=== PATIENT | male | born 1975 | race Hispanic/Latino ===

== ENCOUNTER 2019-10-23 18:20 | Inpatient (IN) | payer OTHER, SELFPAY ==
[2019-10-23 19:02] LABS: #Basophils 0.1 thou/uL (0.0-0.2); #Eosinphils 0.3 thou/uL (0.0-0.7); #Lymphocytes 2.6 thou/uL (1.20-3.40); #Monocytes 0.5 thou/uL (0.11-0.59); #Neutrophils 5.5 thou/uL (1.40-6.50); %Eosinophils 3.7 % (0.0-10.0); %Lymphocytes 28.5 % (21.0-51.0); %Neutrophils 60.8 % (42.0-75.0); Hemoglobin 11.3 g/dL (14.0-18.0); Mean Corpuscular HGB CONC 33.4 g/dL (32.0-36.0); Mean Corpuscular Volume 92.8 fL (78.0-98.0); Mean Platelet Volume 7.5 fL (7.4-10.4); Platelet Count 327 thou/uL (130-400); RBC Distribution Width 11.5 % (11.5-14.5); Red Blood Cell (RBC) Count 3.65 mill/uL (4.70-6.10); White Blood Cell (WBC) Count 9.1 thou/uL (4.8-10.8)
[2019-10-23 19:03] LABS: Bilirubin Negative (Negative); Blood, Urine 2+ (Negative); Clarity Turbid (Clear); Glucose, Urine (Dipstick) 200 mg/dL (Negative); Leukocyte Negative Leu/uL (Negative); Nitrite Negative (Negative); Protein, Urine (Dipstick) 600 mg/dL (Neg-Trace); Squamous Epithelial 0-3 HPF (0-3); Urobilinogen Normal mg/dL (Less than 2)
[2019-10-23 19:14] LABS: Bacteria/HPF None Seen HPF (None Seen)
[2019-10-23 19:15] LABS: Sperm/HPF 3+ HPF (None Seen)
[2019-10-23 19:26] LABS: ALT (SGPT) 14 U/L (8-55); AST (SGOT) 33 U/L (5-34); Albumin 2.5 g/dL (3.5-5.0); Alkaline Phosphatase 107 U/L (40-110); Anion Gap 20 mmol/L (10-20); BUN (Urea Nitrogen) 63 mg/dL (8.9-20.6); Bilirubin, Total 0.2 mg/dL (0.2-1.2); Calc. Creatinine Clearance 0 mL/min (70-130); Carbon Dioxide 17 mmol/L (22-29); Estimated GFR-MDRD 3; Globulin 3.6 g/dL (2.4-3.5); Glucose 172 mg/dL (70-105); Lipase 47 U/L (8-78); Potassium 3.9 mmol/L (3.5-5.1); Protein, Total 6.1 g/dL (6.0-8.3); Sodium 138 mmol/L (136-145)
[2019-10-23 19:35] LABS: Calcium 4.8 mg/dL (7.8-10.44)
[2019-10-23 20:02] LABS: Chloride 105 mmol/L (98-107)
--- NOTE | 2019-10-23 20:17 | RAD ---
SINGLE VIEW OF THE CHEST: 10/23/19 COMPARISON: None. HISTORY: Hyperglycemia and dyspnea. FINDINGS: Single view of the chest shows a normal sized cardiomediastinal silhouette. There is no evidence of c onsolidation, mass, or pleural effusion. The bones are unremarkable. IMPRESSION: No evidence of acute cardiopulmonary disease. POS: EAA
--- NOTE | 2019-10-23 20:46 | CT ---
CT ABDOMEN AND PELVIS WITH CONTRAST: 10/23/19 COMPARISON: None. HISTORY: Shortness of breath and generalized abdominal pain. The patient is diabetic and has low 25 lb in the last month. TECHNIQUE: Multiple contiguous axial images were obtained in a CT of the abdomen and pelvis with contrast. Sagit mylene and coronal reformats were performed. FINDINGS: The kidneys are lobulated in appearance. The gallbladder is decompressed. The liver, adrenal glands, spleen, and pancreas are unremarkable. No free air, free fluid or stranding changes are seen in the a bdomen or pelvis. The large and small bowel are normal in caliber. The appendix is normal. No abdominal or pelvic lymph adenopathy are seen. The visualized inferior thorax is unremarkable. The abdominal wall soft tissues are unremarkable. Mil d degenerative changes are seen in the spine. IMPRESSION: No evidence of acute intra-abdominal/pelvic abnormality. POS: EAA
[2019-10-23] MEDS ORDERED: Morphine 4 MG/ML VIAL ONE (21:03)
--- NOTE | 2019-10-23 21:35 | PDOC.HHP ---
Hospitalist HPI - History of Present Illness Pedal edema History of Present Illness: Patient is a 43 year old male with PMH T1DM, advanced CKD who presents to ED for elevated blood sugar. Patient reports his sugar became out of control today despite normal diet and activity pattern, he takes 4u BID humulin R and 26u BID humulin N BID normally w/ SSI, most recent A1C around 6.5. He has had DKA once before. He has had issues with obtaining supplies and reports he is uninsured. He recently was discharged from [facility] 9 months ago, while incarcerated he was having regular nephrology follow up and had been diagnosed with CKD IV at that time, but has not had labs since he reports. He also complains of gradual slow onset of pedal edema over last year or so, swelling has become a daily occurance where it did not used to happen that much. He also developed shortness of breath in last few days which is new. he has developed poor appetite since CKD worsened, reports he in chronically depressed and is on depakote/seroquel. He has lost 25 pounds since leaving [facility] 9 months ago. He admits to vomiting daily and one episode of blood in vomit once previously. He also describes a pleuritic chest pain. In ED, sugars [address] a/p without acute findings, labs concerning for acute renal failure w/ Cr 15, CO2 17, BUN 63. Calcium 4.8. UA w/ pyuria, no bacteria, no leukocyte or nitrite. He also recieved IVF x 2-3 L in ED. Patient admitted for acute on chronic renal failure. Hospitalist ROS - Review of Systems Constitutional: denies: fever, chills, sweats, weakness, malaise, other Eyes: reports: vision change (blurry). denies: pain, conjunctivae inflammation , eyelid inflammation, redness, other ENT: denies: ear pain, ear discharge, nose pain, nose discharge, nose congestion , mouth pain, mouth swelling, throat pain, throat swelling, other Respiratory: reports: shortness of breath. denies: cough, dry, hemoptysis, SOB with excertion, pleuritic pain, sputum, wheezing, other Cardiovascular: reports: edema. denies: chest pain, palpitations, orthopnea, paroxysmal noc. dyspnea, light headedness, other Gastrointestinal: reports: nausea, vomiting, abdominal pain, diarrhea Genitourinary: denies: dysuria, frequency, incontinence, hematuria, retention, other Musculoskeletal: denies: neck pain, shoulder pain, arm pain, back pain, hand pain, leg pain, foot pain, other Skin: denies: rash, lesions, alcides, bruising, other Neurological: denies: weakness, numbness, incoordination, change in speech, confusion, seizures, other All other systems reviewed; all pertinent +/- noted in HPI/Subj Hospitalist History - Past Medical History Other Medical History: T1DM DKA anxiety depression ckd/close to esrd - Past Surgical History Past Surgical History: reports: no pertinent history - Family History Family History: reports: no pertinent history - Social History Smoking Status: Never smoker Alcohol: reports: None Drugs: reports: marijuana - Exam General Appearance: NAD, awake alert Eye: PERRL, anicteric sclera ENT: normocephalic atraumatic, no oropharyngeal lesions, moist mucosa Neck: supple, symmetric, no JVD, no thyromegaly, no lymphadenopathy, no carotid bruit Heart: RRR, no murmur, no gallops, no rubs, normal peripheral pulses Respiratory: CTAB, no wheezes, no rales, no ronchi, normal chest expansion, no tachypnea, normal percussion Gastrointestinal: soft, non-tender, non-distended, normal bowel sounds, no palpable masses, no hepatomegaly, no splenomegaly, no bruit Extremities: no cyanosis, no clubbing, no edema Skin: normal turgor, no lesions, no rashes Neurological: cranial nerve grossly intact, normal sensation to touch, no weakness, no focal deficits, no new deficit Musculoskeletal: normal tone, normal strength, no muscle wasting Psychiatric: normal affect, normal behavior, A&O x 3 Hospitalist Results - Labs Result Diagrams: 10/23/19 18:46 10/23/19 22:35 Lab results: WBC 9.1 thou/uL (4.8-10.8) 10/23/19 18:46 Hgb 11.3 g/dL (14.0-18.0) L 10/23/19 18:46 Hct 33.9 % (42.0-52.0) L 10/23/19 18:46 MCV 92.8 fL (78.0-98.0) 10/23/19 18:46 Plt Count 327 thou/uL (130-400) 10/23/19 18:46 Neutrophils % 60.8 % (42.0-75.0) 10/23/19 18:46 Sodium 138 mmol/L (136-145) 10/23/19 18:46 Potassium 3.9 mmol/L (3.5-5.1) 10/23/19 18:46 Chloride 105 mmol/L (98-107) 10/23/19 18:46 Carbon Dioxide 17 mmol/L (22-29) L 10/23/19 18:46 BUN 63 mg/dL (8.9-20.6) H 10/23/19 18:46 Creatinine 15.46 mg/dL (0.7-1.3) H 10/23/19 18:46 Glucose 172 mg/dL (70-105) H 10/23/19 18:46 Calcium 4.8 mg/dL (7.8-10.44) L* 10/23/19 18:46 Total Bilirubin 0.2 mg/dL (0.2-1.2) 10/23/19 18:46 AST 33 U/L (5-34) 10/23/19 18:46 ALT 14 U/L (8-55) 10/23/19 18:46 Alkaline Phosphatase 107 U/L (40-110) 10/23/19 18:46 Troponin I 0.016 ng/mL (< 0.028) 10/23/19 18:46 B-Natriuretic Peptide 190.2 pg/mL (0-100) H 10/23/19 18:46 Serum Total Protein 6.1 g/dL (6.0-8.3) 10/23/19 18:46 Albumin 2.5 g/dL (3.5-5.0) L 10/23/19 18:46 Lipase 47 U/L (8-78) 10/23/19 18:46 Urine Ketones Negative mg/dL (Negative) 10/23/19 17:24 Urine Blood 2+ (Negative) A 10/23/19 17:24 Urine Nitrite Negative (Negative) 10/23/19 17:24 Ur Leukocyte Esterase Negative Nae/uL (Negative) 10/23/19 17:24 Urine RBC 4-6 HPF (0-3) A 10/23/19 17:24 Urine WBC 11-20 HPF (0-3) A 10/23/19 17:24 Ur Squamous Epith Cells 0-3 HPF (0-3) 10/23/19 17:24 Urine Bacteria None Seen HPF (None Seen) 10/23/19 17:24 Additional comment: VITAL SIGNS SatOctober 23, 2019 19:34 MARIUSZ Canales, Florina BP: 172/94 MAP: 120 Pulse: 87 Resp: 20 O2 sat: 100 on (Room Air) Time: 10/23/2019 19:34. RADIOLOGY CT Abdomen Pelvis W Con Observe DT: SatOctober 23, 2019 19:[address] ABDOMEN AND PELVIS WITH CONTRAST: 10/23/19 COMPARISON: None. HISTORY: Shortness of breath and generalized abdominal pain. The patient is diabetic and has low 25 lb in the last month. TECHNIQUE: Multiple contiguous axial images were obtained in a CT of the abdomen and pelvis with contrast. Sagit mylene and coronal reformats were performed. FINDINGS: The kidneys are lobulated in appearance. The gallbladder is decompressed. The liver, adrenal glands, spleen, and pancreas are unremarkable. No free air, free fluid or stranding changes are seen in the a bdomen or pelvis. The large and small bowel are normal in caliber. The appendix is normal. No abdominal or pelvic lymph adenopathy are seen. The visualized inferior thorax is unremarkable. The abdominal wall soft tissues are unremarkable. Mil d degenerative changes are seen in the spine. IMPRESSION: No evidence of acute intra-abdominal/pelvic abnormality. POS: EAA . RADIOLOGY XR Chest 1 View Portable Observe DT: SatOctober 23, 2019 19:00 CXRP SINGLE VIEW OF THE CHEST: 10/23/19 COMPARISON: None. HISTORY: Hyperglycemia and dyspnea. FINDINGS: Single view of the chest shows a normal sized cardiomediastinal silhouette. There is no evidence of c onsolidation, mass, or pleural effusion. The bones are unremarkable. IMPRESSION: No evidence of acute cardiopulmonary disease. - EKG Interpretation EKG: NSR, 88 bpm no peaked t waves no acute ST changes Hospitalist H&P A/P - Plan Plan: Patient is a 43 year old male with PMH T1DM, advanced CKD who presents to ED for elevated blood sugar, found to be in renal faliure # acute renal failure on CKD IV - no indication for emergent HD - GFR < 15, suspect will need to initiate HD this admission, poor outpatient follow up since discharge from [facility] 9 months ago - NPO - hydrated in ED, acute worsening of renal failure may be secondary to dehydration from elevated blood sugar - consult nephrology - consult case management for insurance assistance, may get medicaid if esrd, wants to follow up but having difficulties with managing care as outpatient # prolonged QT - QTc 527, monitor on telemetry, check BMP/Mg again and replete if needed # T1DM w/ hyperglycemia - on humulin n 26 units BID + humulin R 4 units BID + SSI and reports good outpatient control - convert to lantus 20u BID w/ moderate SSI and titrate # pyuria - not definite UTI, will order urine culture and empiric ceftriaxone # mood disorder - continue seroquel, depakote # hypocalcemia - rechecked and confirmed, give 2 amp calcium gluconate and recheck BMP now and again at 1pm, nephrology consult placed DVT ppx GI ppx
[2019-10-23] MEDS ORDERED: Sodium Chloride 0.9% 1,000 ML IV SCH ×2 (21:45→23:30)
[2019-10-23 23:21] LABS: Anion Gap 20 mmol/L (10-20); BUN (Urea Nitrogen) 62 mg/dL (8.9-20.6); Calc. Creatinine Clearance 0 mL/min (70-130); Carbon Dioxide 15 mmol/L (22-29); Chloride 108 mmol/L (98-107); Estimated GFR-MDRD 4; Glucose 169 mg/dL (70-105); Potassium 4.3 mmol/L (3.5-5.1); Sodium 139 mmol/L (136-145)
[2019-10-23 23:25] LABS: Calcium 4.3 mg/dL (7.8-10.44)
[2019-10-24 00:07] VITALS: BMI 33.5
[2019-10-24] MEDS ORDERED: Promethazine HCl 12.5 MG in Sodium Chloride 0.9% 50 ML IVPB PRN (01:50)
[2019-10-24] MEDS ORDERED: Labetalol HCl 100 MG/20 ML VIAL SLOW IVP PRN (01:50)
[2019-10-24] MEDS ORDERED: Guaifenesin DM 100-10/5 ML UDCUP PO PRN (01:50)
[2019-10-24] MEDS ORDERED: Morphine 2 MG/ML SYRINGE SLOW IVP PRN (01:50)
[2019-10-24] MEDS ORDERED: Acetaminophen 325 MG TAB PO PRN (01:50)
[2019-10-24] MEDS ORDERED: Dextrose 5% in Water 1,000 ML IV PRN (02:25)
[2019-10-24] MEDS ORDERED: HumaLOG 300 UNITS/3 ML VIAL SC PRN (02:25)
[2019-10-24] MEDS ORDERED: Dextrose 50% Abboject 50 ML SYRINGE SLOW IVP PRN (02:25)
[2019-10-24 02:56] LABS: #Basophils 0.1 thou/uL (0.0-0.2); #Eosinphils 0.4 thou/uL (0.0-0.7); #Lymphocytes 2.5 thou/uL (1.20-3.40); #Monocytes 0.6 thou/uL (0.11-0.59); #Neutrophils 6.2 thou/uL (1.40-6.50); %Basophils 0.8 % (0.0-1.0); %Eosinophils 3.6 % (0.0-10.0); %Lymphocytes 25.9 % (21.0-51.0); %Monocytes 6.3 % (0.0-10.0); %Neutrophils 63.4 % (42.0-75.0); Hemoglobin 9.2 g/dL (14.0-18.0); Mean Corpuscular HGB CONC 33.7 g/dL (32.0-36.0); Mean Corpuscular Hemoglobin 31.5 pg (27.0-31.0); Mean Corpuscular Volume 93.4 fL (78.0-98.0); Mean Platelet Volume 7.2 fL (7.4-10.4); Platelet Count 248 thou/uL (130-400); RBC Distribution Width 11.5 % (11.5-14.5); Red Blood Cell (RBC) Count 2.91 mill/uL (4.70-6.10); White Blood Cell (WBC) Count 9.8 thou/uL (4.8-10.8)
[2019-10-24] MEDS ORDERED: Calcium Gluconate 9.2 MEQ in Sodium Chloride 0.9% 100 ML IVPB SCH ×2 (03:00→07:45)
[2019-10-24] MEDS ORDERED: cefTRIAXone\\ROCEPHIN 1 GM in Sodium Chloride 0.9% 100 ML IVPB SCH (03:00)
[2019-10-24 03:17] LABS: Anion Gap 18 mmol/L (10-20); BUN (Urea Nitrogen) 64 mg/dL (8.9-20.6); Calc. Creatinine Clearance 9 mL/min (70-130); Carbon Dioxide 17 mmol/L (22-29); Chloride 110 mmol/L (98-107); Estimated GFR-MDRD 4; Glucose 167 mg/dL (70-105); Magnesium 1.6 mg/dL (1.6-2.6); Sodium 141 mmol/L (136-145)
[2019-10-24 03:24] LABS: Calcium 4.4 mg/dL (7.8-10.44)
[2019-10-24 03:41] LABS: Phosphorus 11.7 mg/dL (2.3-4.7)
[2019-10-24] MEDS: Ondansetron PF 4 MG/2 ML Vial IVP PRN (05:44)
[2019-10-24 06:52] LABS: Anion Gap 18 mmol/L (10-20); BUN (Urea Nitrogen) 63 mg/dL (8.9-20.6); Calc. Creatinine Clearance 9 mL/min (70-130); Carbon Dioxide 15 mmol/L (22-29); Chloride 110 mmol/L (98-107); Estimated GFR-MDRD 4; Glucose 150 mg/dL (70-105); Potassium 4.2 mmol/L (3.5-5.1); Sodium 139 mmol/L (136-145)
[2019-10-24 06:57] LABS: Calcium 4.8 mg/dL (7.8-10.44)
[2019-10-24] MEDS: Insulin Glargine 20 UNITS in Pre-Filled Syringe 1 EACH SC SCH ×2 (08:23→20:26)
[2019-10-24] MEDS: Polyethylene Glycol 3350 17 GM Packet PO SCH (08:23)
[2019-10-24] MEDS: Heparin 5,000 UNITS/ML VIAL SC SCH ×3 (08:30→20:28)
[2019-10-24] MEDS ORDERED: Calcium Carbonate 600 MG TAB PO SCH (09:00)
[2019-10-24] MEDS ORDERED: Famotidine 20 MG TAB PO SCH (09:00)
[2019-10-24] MEDS ORDERED: Tuberculin PPD 0.1 ML VIAL I-DERMAL SCH (11:30)
[2019-10-24] MEDS ORDERED: EPOETIN ALFA-EPBX (ESRD) 10,000 UNIT/ML VIAL SC SCH (11:45)
[2019-10-24] MEDS: Sevelamer Carbonate 800 MG TAB PO SCH ×2 (12:21→17:24)
[2019-10-24 12:49] LABS: Hep B Core Total Ab Non-Reactive (NonReactive); Hep B Core Total Index 0.03 S/CO (0-0.79)
[2019-10-24 12:50] LABS: HBSAB Concentration 1.83 mIU/mL; Hep B Surf AB Non-Reactive (NonReactive); Hep B Surf Ag Non-Reactive S/CO (NonReactive)
[2019-10-24 12:51] LABS: Hep C IgG Ab Non-Reactive (NonReactive); Hep C Index 0.09 S/CO (0-0.79)
[2019-10-24 13:46] LABS: Anion Gap 20 mmol/L (10-20); BUN (Urea Nitrogen) 74 mg/dL (8.9-20.6); Calc. Creatinine Clearance 9 mL/min (70-130); Carbon Dioxide 17 mmol/L (22-29); Chloride 109 mmol/L (98-107); Estimated GFR-MDRD 4; Glucose 123 mg/dL (70-105); Magnesium 1.6 mg/dL (1.6-2.6); Potassium 4.3 mmol/L (3.5-5.1); Sodium 142 mmol/L (136-145)
[2019-10-24 13:53] LABS: Calcium 5.3 mg/dL (7.8-10.44); Phosphorus 11.4 mg/dL (2.3-4.7)
[2019-10-24] MEDS: Calcium Carbonate 600 MG TAB PO SCH ×2 (15:33→20:28)
[2019-10-24] MEDS: HYDROcodone/Acetaminophen 5/325 mg Tablet PO PRN (15:33)
--- NOTE | 2019-10-24 20:22 | PDOC.HOSPP ---
- Subjective Encounter Date: 10/24/19 Encounter Time: 10:00 Subjective: no overnight events. This morning laying comfortably in bed and has no complaints. Nephrology consulted, pending trialysis placement and dialysis - Objective Vital Signs & Weight: Vital Signs (12 hours) Temp Pulse Resp BP Pulse Ox 10/24/19 11:33 98.5 F 81 18 178/83 H 95 10/24/19 08:23 98 F 82 18 161/80 H 95 Weight Admit Weight 213 lb 13.568 oz Weight 213 lb 13.574 oz I&O: 10/23/19 10/24/19 10/25/19 06:59 06:59 06:59 Intake Total 222 720 Output Total 1000 1999 Balance -198 -6849 Result Diagrams: 10/24/19 02:44 10/24/19 13:18 Additional Labs: Accuchecks 10/24/19 10/24/19 10/24/19 16:51 10:55 05:45 POC Glucose 193 H 127 H 177 H Hospitalist ROS - Review of Systems Constitutional: denies: fever, chills, sweats, weakness, malaise, other Respiratory: denies: cough, dry, shortness of breath, hemoptysis, SOB with excertion, pleuritic pain, sputum, wheezing, other Cardiovascular: denies: chest pain, palpitations, orthopnea, paroxysmal noc. dyspnea, edema, light headedness, other Gastrointestinal: denies: nausea, vomiting, abdominal pain, diarrhea, constipation, melena, hematochezia, other Genitourinary: denies: dysuria, frequency, incontinence, hematuria, retention, other - Medication Medications: Active Medications Generic Name Dose Route Start Last Admin Trade Name Freq PRN Reason Stop Dose Admin Hydrocodone Bitart/Acetaminophen 1 tab 10/24/19 01:50 10/24/19 15:33 Beason 5/325 PO 1 tab Q4H PRN Administration Moderate Pain (4-6) Calcium Carbonate 600 mg 10/24/19 15:00 10/24/19 15:33 Caltrate PO 600 mg TID APURVA Administration Epoetin Venkatesh-epbx 10,000 unit 10/24/19 11:45 10/24/19 12:22 Retacrit SC 10,000 unit Q7D APURVA Administration Heparin Sodium (Porcine) 5,000 units 10/24/19 09:00 10/24/19 15:35 Heparin SC Not Given TID [facility] Insulin Glargine 20 units/ 0.2 mls @ 0 mls/hr 10/24/19 09:00 10/24/19 08:23 Miscellaneous Medication SC Not Given BID [facility] Ondansetron HCl 4 mg 10/24/19 01:50 10/24/19 05:44 Zofran IVP 4 mg Q6H PRN Administration Nausea/Vomiting use 1st Polyethylene Glycol 17 gm 10/24/19 09:00 10/24/19 08:23 Miralax PO Not Given DAILY [facility] Sevelamer Carbonate 800 mg 10/24/19 12:00 10/24/19 17:24 Renvela PO Not Given TID[facility] Sodium Chloride 10 ml 10/24/19 09:00 10/24/19 14:35 Flush - Normal Saline IVF Not Given Q12HR APURVA Sodium Chloride 10 ml 10/23/19 23:31 10/24/19 05:44 Flush - Normal Saline IVF 10 ml PRN PRN Administration Saline Flush - Exam General Appearance: NAD, awake alert Heart: RRR, no murmur, no gallops, no rubs, normal peripheral pulses Respiratory: CTAB, no wheezes, no rales, no ronchi, normal chest expansion, no tachypnea, normal percussion Gastrointestinal: soft, non-tender, non-distended, normal bowel sounds, no palpable masses, no hepatomegaly, no splenomegaly, no bruit Extremities: no cyanosis, no clubbing, no edema Psychiatric: normal affect, normal behavior, A&O x 3 Hosp A/P - Plan #CKD-MBD -supplemented Ca; started calcium carbonate -NPO, pending catheter placement and dialysis initiation -Educated patient in preparation for lifelong dialysis
[2019-10-24] MEDS: Divalproex Sodium DR 500 MG TAB PO SCH (20:28)
--- NOTE | 2019-10-24 20:28 | CON ---
DATE OF CONSULTATION: 10/24/2019 CONSULTING PHYSICIAN: Chadwick Kasper MD REASON FOR CONSULT: Worsening of renal labs. REASON FOR ADMISSION: Leg swelling. HISTORY OF PRESENT ILLNESS: This is a 43-year-old male with history of type 1 diabetes, CKD, hypertension, who came to the hospital with above complaints and was found to have worsening labs. The patient was recently discharged from [facility] and was following with Nephrology and the patient was found to have a GFR of 17, and was told that he might need dialysis in the near future. He did not have any followup for few months, almost 9 months. He has been having few symptoms of losing weight and worsening leg swelling and start up to the hospital and he was found to have hypocalcemia and severely advanced renal dysfunction and Nephrology is consulted. No nausea or vomiting. No chest pain or palpitation reported. PAST MEDICAL HISTORY: Positive for type 1 diabetes, DKA, anxiety, depression, CKD. PAST SURGICAL HISTORY: None. HOME MEDICATIONS: Reviewed. ALLERGIES: NO KNOWN DRUG ALLERGIES. SOCIAL HISTORY: No smoking, alcohol, or illicit drug use. FAMILY HISTORY: No history of kidney disease. REVIEW OF SYSTEMS: The following complete review of systems was negative, unless otherwise mentioned in the HPI or below: Constitutional: Weight loss or gain, ability to conduct usual activities. Skin: Rash, itching. Eyes: Double vision, pain. ENT/Mouth: Nose bleeding, neck stiffness, pain, tenderness. Cardiovascular: Palpitations, dyspnea on exertion, orthopnea. Respiratory: Shortness of breath, wheezing, cough, hemoptysis, fever or night sweats. Gastrointestinal: Poor appetite, abdominal pain, heartburn, nausea, vomiting, constipation, or diarrhea. Genitourinary: Urgency, frequency, dysuria, nocturia. Musculoskeletal: Pain, swelling. Neurologic/Psychiatric: Anxiety, depression. Allergy/Immunologic: Skin rash, bleeding tendency. PHYSICAL EXAMINATION: GENERAL: This is a well-built male, in no apparent distress. VITAL SIGNS: HEENT: Atraumatic, normocephalic. Oral mucosa is moist. NECK: Supple. CV: S1 and S2. Rate and rhythm normal. RESPIRATORY: Clear. GI: Abdomen is soft. MUSCULOSKELETAL: No tenderness. No edema. DERMATOLOGIC: No skin rash. NEUROLOGIC: Alert and awake. PSYCHIATRIC: Mood and affect normal. LABORATORY DATA: Hemoglobin is 9.2, potassium 4.2, BUN is 63, creatinine is 14.8, calcium is 4.8, phosphorus 11.7. ASSESSMENT AND PLAN: 1. End-stage renal disease. Plan is to start on dialysis and Surgery consulted. We will start him on dialysis once access is placed. 2. Acidosis. We will start him on dialysis. 3. Severe hypocalcemia. Continue calcium supplements. We will also have dialysis with calcium bath. 4. Hyperphosphatemia. We will add Renvela. 5. Anemia. We will start Epogen. Iron studies are adequate. 6. Edema. 7. History of hypertension . 8. Plan is to start on dialysis with the femoral catheter and consult Surgery on Saturday for possible tunneled dialysis catheter placement. Thank you for the consult. We will follow. Job ID: [id number]
--- NOTE | 2019-10-24 22:06 | OP ---
DATE OF PROCEDURE: 10/24/2019 CONSULTING PHYSICIAN: Mukul Suárez MD REASON FOR CONSULTATION: End-stage renal disease. PREOPERATIVE DIAGNOSIS: End-stage renal disease. POSTOPERATIVE DIAGNOSIS: End-stage renal disease. PROCEDURE PERFORMED: Placement of right femoral Trialysis hemodialysis catheter. ANESTHESIA: 1% lidocaine. INDICATIONS FOR PROCEDURE: The patient is a 43-year-old male. He presented to the hospital yesterday for evaluation with concerns regarding hyperglycemia. He knew that he did not feel well and was concerned it was his blood sugar level. His blood sugars, however, were only about 170. What was very elevated was his creatinine, which was 15. He was admitted by the Hospitalist Service and Nephrology consultation was obtained. He is also very hypocalcemic and hyperphosphatemic. Dialysis catheter placement was requested for urgent hemodialysis. DESCRIPTION OF PROCEDURE: Informed consent was obtained. The patient was placed supine in his bed on the telemetry floor. Right groin was trimmed of hair, prepped with ChloraPrep and draped in sterile fashion. Local anesthetic was infiltrated with 1% lidocaine. A large gauge needle was passed on the initial pass into the right femoral vein. A guidewire was passed through the needle. The needle was removed, skin was incised, tract was dilated, and a triple-lumen Trialysis catheter was passed over the wire uneventfully. Each of the three lumens aspirated blood freely and was flushed with normal saline. The catheter was secured to the skin exit site with 3-0 nylon suture. A sterile CHG dressing was applied. There were no complications. The patient tolerated the procedure well. He is cleared for usage of the catheter and I have requested all blood draws to be performed through this catheter as well. Job ID: [id number]
[2019-10-25 06:54] LABS: #Basophils 0.1 thou/uL (0.0-0.2); #Eosinphils 0.4 thou/uL (0.0-0.7); #Lymphocytes 2.2 thou/uL (1.20-3.40); #Monocytes 0.7 thou/uL (0.11-0.59); #Neutrophils 5.2 thou/uL (1.40-6.50); %Basophils 0.9 % (0.0-1.0); %Eosinophils 4.5 % (0.0-10.0); %Lymphocytes 25.6 % (21.0-51.0); %Monocytes 7.9 % (0.0-10.0); %Neutrophils 61.2 % (42.0-75.0); Hemoglobin 9.6 g/dL (14.0-18.0); Mean Corpuscular HGB CONC 32.8 g/dL (32.0-36.0); Mean Corpuscular Hemoglobin 30.6 pg (27.0-31.0); Mean Corpuscular Volume 93.4 fL (78.0-98.0); Mean Platelet Volume 7.4 fL (7.4-10.4); Platelet Count 278 thou/uL (130-400); RBC Distribution Width 11.4 % (11.5-14.5); Red Blood Cell (RBC) Count 3.12 mill/uL (4.70-6.10); White Blood Cell (WBC) Count 8.5 thou/uL (4.8-10.8)
[2019-10-25 07:23] LABS: Anion Gap 15 mmol/L (10-20); BUN (Urea Nitrogen) 48 mg/dL (8.9-20.6); Calc. Creatinine Clearance 10 mL/min (70-130); Calcium 5.9 mg/dL (7.8-10.44); Carbon Dioxide 20 mmol/L (22-29); Chloride 108 mmol/L (98-107); Estimated GFR-MDRD 5; Glucose 72 mg/dL (70-105); Magnesium 1.7 mg/dL (1.6-2.6); Phosphorus 8.4 mg/dL (2.3-4.7); Potassium 3.4 mmol/L (3.5-5.1); Sodium 140 mmol/L (136-145)
[2019-10-25] MEDS ORDERED: Potassium Chloride 20 MEQ TAB PO SCH (07:39)
--- NOTE | 2019-10-25 07:42 | ULT ---
BILATERAL RENAL ULTRASOUND: Date: 10/24/2019 COMPARISON: None. HISTORY: Acute kidney injury. Evaluate for obstruction. TECHNIQUE: Multiplanar Nuno scale and color Doppler images were obtained in a renal ultrasound. FINDINGS: The right kidney is slightly hyperechoic. The left kidney demonstrates normal cortical echogenicity. No hydronephrosis or calculi seen in either kidney. The kidneys measures 12.2 and 12.1 cm in length o n the right and left, respectively. Limited visualization of the urinary bladder is unremarkable. Neither ureteral jet was able to be vis ualized. IMPRESSION: Slight increased echogenicity of the right kidney may be secondary to chronic medical renal disease. POS: EAA
[2019-10-25] MEDS ORDERED: Calcium Gluconate 4.6 MEQ in Sodium Chloride 0.9% 100 ML IVPB SCH (07:45)
--- NOTE | 2019-10-25 07:48 | ULT ---
BILATERAL UPPER EXTREMITY VENOUS ULTRASOUND/MAPPING: Date: 10/24/2019 HISTORY: End-stage renal disease. Evaluate for fistula placement. TECHNIQUE: Multiplanar Grayscale and color Doppler images were obtained in bilateral upper extremity venous ultrasound. Spectral analysis of the Doppler waveforms were performed. FINDINGS: The right brachial, radial, and ulnar arteries measure 6.0 mm, 3.1 mm, and 1.5 mm in size, respective ly. The left brachial, radial, and ulnar arteries measure 3.7 mm, 2.5 mm, and 2.7 mm in size, respectivel y. RIGHT CEPHALIC VEIN: Shoulder 3.7 mm Upper arm 3.8 mm Mid upper arm 4.5 mm Just proximal to elbow 6.3 mm Just distal to elbow 1.9 mm Mid forearm 1.9 mm At wrist 1.7 mm RIGHT BASILIC VEIN: Shoulder 5.5 mm Upper arm 3.1 mm Mid upper arm 3.2 mm Just proximal to elbow 4.0 mm Just distal to elbow 3.3 mm Mid forearm 1.6 mm At wrist 1.6 mm LEFT CEPHALIC VEIN: Shoulder 3.9 mm Upper arm 1.9 mm Mid upper arm 2.0 mm Just proximal to elbow Clot Just distal to elbow Clot Mid forearm Clot At wrist Clot LEFT BASILIC VEIN: Shoulder 3.7 mm Upper arm 3.8 mm Mid upper arm 4.2 mm Just proximal to elbow 4.8 mm Just distal to elbow 3.7 mm Mid forearm 2.8 mm At wrist 3.6 mm The jugular veins and subclavian veins are patent without evidence of thrombus. IMPRESSION: Vein mapping for dialysis access as above. POS: AMALIA
[2019-10-25] MEDS: Calcium Carbonate 600 MG TAB PO SCH ×3 (08:34→20:30)
[2019-10-25] MEDS: Heparin 5,000 UNITS/ML VIAL SC SCH ×3 (08:34→20:31)
[2019-10-25] MEDS: Sevelamer Carbonate 800 MG TAB PO SCH ×3 (08:34→15:56)
[2019-10-25] MEDS: cloNIDine 0.1 MG TAB PO PRN ×2 (08:35→15:56)
[2019-10-25] MEDS: Polyethylene Glycol 3350 17 GM Packet PO SCH (08:41)
[2019-10-25] MEDS ORDERED: Heparin 10,000 UNITS/ 10 ML VIAL ONE (09:29)
[2019-10-25] MEDS: Famotidine 20 MG TAB PO SCH (11:21)
[2019-10-25] MEDS: Insulin Glargine 20 UNITS in Pre-Filled Syringe 1 EACH SC SCH ×2 (11:25→20:30)
--- NOTE | 2019-10-25 12:39 | PDOC.HOSPP ---
- Subjective Encounter Date: 10/25/19 Encounter Time: 09:00 Subjective: no overnight events. This morning feels well and endorses improvement in cramps he intermittently had in the past couple of weeks. - Objective Vital Signs & Weight: Vital Signs (12 hours) Temp Pulse Resp BP Pulse Ox 10/25/19 07:42 98.0 F 91 17 181/96 H 95 10/25/19 03:58 98.9 F 68 18 173/83 H 95 Weight Admit Weight 213 lb 13.568 oz Weight 200 lb 2.876 oz I&O: 10/24/19 10/25/19 10/26/19 06:59 06:59 06:59 Intake Total 222 960 Output Total 1000 2250 Balance -068 -9720 Result Diagrams: 10/25/19 06:48 10/25/19 06:48 Additional Labs: Accuchecks 10/25/19 10/25/19 10/24/19 11:26 05:52 20:27 POC Glucose 119 H 89 237 H 10/24/19 16:51 POC Glucose 193 H Hospitalist ROS - Review of Systems Constitutional: denies: fever, chills, sweats, weakness, malaise, other Respiratory: denies: cough, dry, shortness of breath, hemoptysis, SOB with excertion, pleuritic pain, sputum, wheezing, other Cardiovascular: denies: chest pain, palpitations, orthopnea, paroxysmal noc. dyspnea, edema, light headedness, other Gastrointestinal: denies: nausea, vomiting, abdominal pain, diarrhea, constipation, melena, hematochezia, other - Medication Medications: Active Medications Generic Name Dose Route Start Last Admin Trade Name Freq PRN Reason Stop Dose Admin Acetaminophen 650 mg 10/24/19 01:50 10/24/19 20:36 Tylenol PO 650 mg Q4H PRN Administration Headache/Fever/Mild Pain (1-3) Hydrocodone Bitart/Acetaminophen 1 tab 10/24/19 01:50 10/24/19 15:33 Tiro 5/325 PO 1 tab Q4H PRN Administration Moderate Pain (4-6) Calcium Carbonate 600 mg 10/24/19 15:00 10/25/19 08:34 Caltrate PO Not Given TID APURVA Clonidine 0.1 mg 10/24/19 01:50 10/25/19 08:35 Catapres PO 0.1 mg BID PRN Administration SBP > 160 use second Divalproex Sodium 500 mg 10/24/19 21:00 10/24/19 20:28 Depakote PO 500 mg HS APURVA Administration Epoetin Venkatesh-epbx 10,000 unit 10/24/19 11:45 10/24/19 12:22 Retacrit SC 10,000 unit Q7D APURVA Administration Famotidine 20 mg 10/25/19 09:00 10/25/19 11:21 Pepcid PO Not Given [facility] Heparin Sodium (Porcine) 5,000 units 10/24/19 09:00 10/25/19 08:34 Heparin SC Not Given TID [facility] Insulin Glargine 20 units/ 0.2 mls @ 0 mls/hr 10/24/19 09:00 10/25/19 11:25 Miscellaneous Medication SC Not Given BID [facility] Ondansetron HCl 4 mg 10/24/19 01:50 10/24/19 05:44 Zofran IVP 4 mg Q6H PRN Administration Nausea/Vomiting use 1st Polyethylene Glycol 17 gm 10/24/19 09:00 10/25/19 08:41 Miralax PO Not Given DAILY [facility] Quetiapine Fumarate 100 mg 10/24/19 21:00 10/24/19 20:28 Seroquel PO 100 mg HS [facility] Administration Sevelamer Carbonate 800 mg 10/24/19 12:00 10/25/19 11:19 Renvela PO Not Given TID[facility] Sodium Chloride 10 ml 10/24/19 09:00 10/25/19 11:22 Flush - Normal Saline IVF Not Given Q12HR APURVA Sodium Chloride 10 ml 10/23/19 23:31 10/24/19 05:44 Flush - Normal Saline IVF 10 ml PRN PRN Administration Saline Flush - Exam General Appearance: NAD, awake alert Neck: no JVD Heart: RRR, no murmur, no gallops, no rubs, normal peripheral pulses Respiratory: CTAB, no wheezes, no rales, no ronchi, normal chest expansion, no tachypnea, normal percussion Gastrointestinal: soft, non-tender, non-distended, normal bowel sounds, no palpable masses, no hepatomegaly, no splenomegaly, no bruit Extremities: 2+ LE edema Extremities - other findings: right femoral catheter in place Psychiatric: normal affect, normal behavior, A&O x 3 Hosp A/P - Plan #ESRD -dialysis initiated, well tolerated; another session (10/24) -pending tunneled dialysis catheter placement -nephrology onboard #CKD-MBD -supplemented Ca; started calcium carbonate and ravelamer per nephrology -Educated patient in preparation for lifelong dialysis ELSO: 1 midnight
--- NOTE | 2019-10-25 17:25 | PRG ---
DATE OF SERVICE: 10/25/2019 SUBJECTIVE: Patient was seen and examined at bedside and overnight events noted. Patient denies any shortness of breath or chest pain or palpitation. No history of nausea or vomiting or diarrhea or fever or chills or cramps. OBJECTIVE: GENERAL: This is a well built male, in no apparent distress. VITAL SIGNS: Temperature 97.3. Heart rate 97. Respiratory rate 18. Blood pressure 126/59. HEENT: Atraumatic, normocephalic. Oral mucosa is moist NECK: Supple. CARDIOVASCULAR: S1, S2 heard. Rate and rhythm regular. RESPIRATORY: Clear to auscultation. GASTROINTESTINAL: Abdomen is soft. MUSCULOSKELETAL: No tenderness. No edema. DERMATOLOGIC: No skin rash. NEUROLOGIC: Alert and awake and oriented X3. No focal neurologic deficits. Moving all the extremities. PSYCHIATRIC: Mood and affect normal. LABORATORY DATA: Potassium 3.4, BUN is 48, creatinine is 12.2. ASSESSMENT AND PLAN: 1. End-stage renal disease. Continue dialysis. Patient is interested in peritoneal dialysis. We will ask the Surgery to place a fistula and peritoneal dialysis catheter with a tunneled dialysis catheter. Keep n.p.o. after midnight. 2. Acidosis, better. 3. Severe hypercalcemia, getting better. 4. Hyperphosphatemia. 5. Anemia of chronic disease. 6. History of hypertension. 7. Consult Surgery in the morning and for dialysis access placement. Job ID: [id number]
[2019-10-25] MEDS: Divalproex Sodium DR 500 MG TAB PO SCH (20:30)
[2019-10-26] MEDS: cloNIDine 0.1 MG TAB PO PRN (04:22)
[2019-10-26 05:13] LABS: Anion Gap 10 mmol/L (10-20); BUN (Urea Nitrogen) 34 mg/dL (8.9-20.6); Calc. Creatinine Clearance 13 mL/min (70-130); Calcium 6.1 mg/dL (7.8-10.44); Carbon Dioxide 27 mmol/L (22-29); Chloride 101 mmol/L (98-107); Estimated GFR-MDRD 6; Glucose 60 mg/dL (70-105); Magnesium 1.6 mg/dL (1.6-2.6); Potassium 2.9 mmol/L (3.5-5.1); Sodium 135 mmol/L (136-145)
[2019-10-26] MEDS ORDERED: Potassium Chloride 20 MEQ TAB PO SCH ×2 (05:45→08:46)
[2019-10-26] MEDS: Ondansetron PF 4 MG/2 ML Vial IVP PRN (05:52)
[2019-10-26] MEDS: Insulin Glargine 20 UNITS in Pre-Filled Syringe 1 EACH SC SCH ×2 (06:59→19:42)
[2019-10-26] MEDS: Polyethylene Glycol 3350 17 GM Packet PO SCH (07:00)
[2019-10-26] MEDS ORDERED: Calcium Gluconate 9.2 MEQ in Sodium Chloride 0.9% 100 ML IVPB SCH (08:15)
[2019-10-26] MEDS: Heparin 5,000 UNITS/ML VIAL SC SCH ×3 (08:45→19:39)
[2019-10-26] MEDS: Calcium Carbonate 600 MG TAB PO SCH ×3 (08:49→19:38)
[2019-10-26] MEDS: Sevelamer Carbonate 800 MG TAB PO SCH ×3 (08:49→16:36)
[2019-10-26] MEDS: Famotidine 20 MG TAB PO SCH (08:49)
[2019-10-26] MEDS ORDERED: Losartan 25 MG TAB PO SCH (09:00)
[2019-10-26] MEDS: hydrALAZINE 20 MG/ML VIAL SLOW IVP PRN ×2 (11:31→19:39)
[2019-10-26] MEDS ORDERED: traMADol HCl 50 MG TAB PO PRN ×2 (12:44→14:17)
[2019-10-26] MEDS ORDERED: Acetaminophen 500 MG TAB PO PRN (12:44)
[2019-10-26] MEDS ORDERED: CEFAZOLIN 2 GM in Premix Bag 1 BAG IVPB SCH (12:45)
[2019-10-26 12:52] LABS: Calcium 6.6 mg/dL (7.8-10.44); Potassium 4.5 mmol/L (3.5-5.1)
--- NOTE | 2019-10-26 14:49 | PRG ---
DATE OF SERVICE: 10/26/2019 SUBJECTIVE: A 43-year-old gentleman being seen for endstage renal disease. Patient denies any nausea, vomiting or chest pain. OBJECTIVE: GENERAL: Patient is awake and alert. VITAL SIGNS: Afebrile, pulse 75, breathing at 16, blood pressure 159/83. HEENT: Head normocephalic and atraumatic. Eyes intact, no ulcers. Nose intact, no ulcers. Ears intact, no ulcers. NECK: Supple. No JVD. CHEST: Symmetrical and clear. CARDIOVASCULAR: Shows S1 and S2, no rub, no murmur. GASTROINTESTINAL: Abdomen is soft, bowel sounds positive. EXTREMITIES: Show no edema or ulcers. SKIN: Shows no rash or petechiae. MUSCULOSKELETAL: Shows no joint swelling or stiffness. GENITOURINARY: Shows no Ordonez or CVA tenderness. NEUROLOGIC: Motor intact. Cranial nerves intact. LABORATORY DATA: Hemoglobin 9.6. ASSESSMENT: 1. Stage chronic kidney disease. Plan dialysis. 2. Hypertension, stable. 3. Hyperkalemia, stable. Medication based on GFR appropriate. Outpatient discharge planning is in progress. Job ID: [id number]
[2019-10-26] MEDS: Divalproex Sodium DR 500 MG TAB PO SCH (19:38)
--- NOTE | 2019-10-26 21:09 | CON ---
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 He has longstanding diabetes since he was 18 years of age. He is non-insulin dependent. He was feeling poorly thinking he was in DKA, presented to the hospital, where he was evaluated and found to be in renal failure. He has a Trialysis catheter in the right groin that Dr. Snider placed on 10/24/2019. He has undergone several dialysis. On presentation, his potassium was 3.9, it is 2.9 this morning. He was given 40 mEq of potassium, now 4.5. On presentation, his CO2 was 17, today it is 27. I have been asked to see him by Dr. Mcdaniel and Dr. Suárez regarding dialysis access. The patient was initiated on peritoneal dialysis so we can continue working. He has had an ultrasound vein mapping both arms performed on 10/24/2019, revealing the right arm cephalic vein to be of excellent caliber to the elbow but small distally. In the left arm, he has clot in his forearm. Basilic veins on both sides look good. He has IV access only in his groin. He states initially he had IV access in his left arm. On admission, he did have an abdominal and pelvis CAT scan revealing no acute abnormality. He denies having any hernias. ALLERGIES: NONE. TOBACCO: None. ALCOHOL: Rarely. MEDICATIONS: He states he takes; 1. Insulin 20 subcu b.i.d. 2. Seroquel 100 at bedtime. 3. Depakote 500 at bedtime. PAST SURGICAL HISTORY: Tonsillectomy and adenoidectomy as a child. PAST MEDICAL HISTORY: Mild obesity, diabetes. FAMILY HISTORY: Noncontributory. REVIEW OF SYSTEMS: Noncontributory. He has 2 sons, whom he hopes can donate a kidney for him eventually. PHYSICAL EXAMINATION: VITAL SIGNS: Height 5 foot 7 inches. Weight 199 pounds. 31 BMI. 98.2, 78, and 170/95. HEAD, EARS, EYES, NOSE, AND THROAT: Unremarkable. LUNGS: Clear to auscultation. CARDIAC: Regular rate and rhythm without murmur or gallop. ABDOMEN: Soft, slightly obese, and nontender. No hernias. EXTREMITIES: Unremarkable. Palpable radial and ulnar pulses bilaterally. No IVs in his arms. Right groin Trialysis catheter. LABORATORY DATA: Sodium 135; potassium 2.9, given potassium, now 4.5; BUN 34; creatinine 9.43; and glucose 67 to 200. White count 8 and hemoglobin 9.6. ASSESSMENT AND PLAN: End-stage renal disease secondary to diabetic hypertensive nephropathy. The patient desires peritoneal dialysis. The patient is right-handed, but he has clot in his left forearm veins for IV access initially. We would plan a right arm fistula, laparoscopic peritoneal dialysis catheter, hemodialysis catheter, and central line. He understands risks and benefits. We will plan that on Saturday, tomorrow afternoon. Job ID: [id number]
--- NOTE | 2019-10-26 22:54 | PDOC.HOSPP ---
- Subjective Encounter Date: 10/26/19 Encounter Time: 10:00 Subjective: no overnight events. Feeling well and has no complaints. Pending right arm fistula and peritoneal dialysis procedures (10/25) - Objective Vital Signs & Weight: Vital Signs (12 hours) Temp Pulse Resp BP BP Pulse Ox 10/26/19 19:39 80 177/88 H 10/26/19 19:31 98.4 F 80 18 177/88 H 97 10/26/19 15:00 98.1 F 76 14 163/96 H 94 L 10/26/19 11:16 98.2 F 78 18 170/95 H 97 Weight Admit Weight 213 lb 13.568 oz Weight 199 lb 9.6 oz I&O: 10/25/19 10/26/19 10/27/19 06:59 06:59 06:59 Intake Total 960 1360 1300 Output Total 2250 1410 950 Balance -1290 -50 350 Result Diagrams: 10/25/19 06:48 10/26/19 11:37 Additional Labs: Accuchecks 10/26/19 10/26/19 10/26/19 20:36 16:38 10:41 POC Glucose 152 H 176 H 67 L 10/26/19 05:44 POC Glucose 57 L* Hospitalist ROS - Review of Systems Constitutional: denies: fever, chills, sweats, weakness, malaise, other Respiratory: denies: cough, dry, shortness of breath, hemoptysis, SOB with excertion, pleuritic pain, sputum, wheezing, other Cardiovascular: denies: chest pain, palpitations, orthopnea, paroxysmal noc. dyspnea, edema, light headedness, other Gastrointestinal: denies: nausea, vomiting, abdominal pain, diarrhea, constipation, melena, hematochezia, other Genitourinary: denies: dysuria, frequency, incontinence, hematuria, retention, other - Medication Medications: Active Medications Generic Name Dose Route Start Last Admin Trade Name Freq PRN Reason Stop Dose Admin Hydrocodone Bitart/Acetaminophen 1 tab 10/24/19 01:50 10/24/19 15:33 [place] 5/325 PO 1 tab Q4H PRN Administration Moderate Pain (4-6) Calcium Carbonate 600 mg 10/24/19 15:00 10/26/19 19:38 Caltrate PO 600 mg TID APURVA Administration Dextrose/Water 25 gm 05/16/20 02:25 10/26/19 05:52 Dextrose 50% SLOW IVP 25 gm PRN PRN Administration Hypoglycemia Divalproex Sodium 500 mg 10/24/19 21:00 10/26/19 19:38 Depakote PO 500 mg HS APURVA Administration Epoetin Venkatesh-epbx 10,000 unit 10/24/19 11:45 10/24/19 12:22 Retacrit SC 10,000 unit Q7D APURVA Administration Famotidine 20 mg 10/25/19 09:00 10/26/19 08:49 Pepcid PO 20 mg QAM APURVA Administration Heparin Sodium (Porcine) 5,000 units 10/24/19 09:00 10/26/19 19:39 Heparin SC 5,000 units TID APURVA Administration Hydralazine HCl 10 mg 10/24/19 01:50 10/26/19 19:39 Apresoline SLOW IVP 10 mg Q6H PRN Administration SBP GREATER THAN 160 Insulin Glargine 20 units/ 0.2 mls @ 0 mls/hr 10/24/19 09:00 10/26/19 19:42 Miscellaneous Medication SC Not Given BID APURVA Losartan Potassium 25 mg 10/26/19 09:00 10/26/19 08:49 Cozaar PO 25 mg DAILY APURVA Administration Ondansetron HCl 4 mg 10/24/19 01:50 10/26/19 05:52 Zofran IVP 4 mg Q6H PRN Administration Nausea/Vomiting use 1st Polyethylene Glycol 17 gm 10/24/19 09:00 10/26/19 07:00 Miralax PO Not Given DAILY APURVA Quetiapine Fumarate 100 mg 10/24/19 21:00 10/26/19 19:38 Seroquel PO 100 mg HS APURVA Administration Sevelamer Carbonate 800 mg 10/24/19 12:00 10/26/19 16:36 Renvela PO 800 mg TID-WM APURVA Administration Sodium Chloride 10 ml 10/24/19 09:00 10/26/19 19:41 Flush - Normal Saline IVF 10 ml Q12HR APURVA Administration Sodium Chloride 10 ml 10/23/19 23:31 10/24/19 05:44 Flush - Normal Saline IVF 10 ml PRN PRN Administration Saline Flush - Exam General Appearance: NAD, awake alert Heart: RRR, no murmur, no gallops, no rubs, normal peripheral pulses Respiratory: CTAB, no wheezes, no rales, no ronchi, normal chest expansion, no tachypnea, normal percussion Gastrointestinal: soft, non-tender, non-distended, normal bowel sounds, no palpable masses, no hepatomegaly, no splenomegaly, no bruit Extremities: no edema Hosp A/P - Plan #ESRD Pending fistula, peritoneal dialysis procedure (10/26) #CKD-MBD -supplemented Ca; started calcium carbonate and sevelamer per nephrology -NPO, pending catheter placement and dialysis initiation
[2019-10-26] MEDS ORDERED: HumaLOG 300 UNITS/3 ML VIAL SC PRN (23:15)
[2019-10-27] MEDS: Famotidine 20 MG TAB PO SCH (06:12)
[2019-10-27] MEDS: Calcium Carbonate 600 MG TAB PO SCH ×3 (06:12→21:08)
[2019-10-27] MEDS: Heparin 5,000 UNITS/ML VIAL SC SCH ×3 (06:13→21:09)
[2019-10-27] MEDS: Losartan 25 MG TAB PO SCH (06:13)
[2019-10-27] MEDS: Sevelamer Carbonate 800 MG TAB PO SCH ×3 (06:13→16:27)
[2019-10-27] MEDS: Polyethylene Glycol 3350 17 GM Packet PO SCH (06:14)
[2019-10-27 06:46] LABS: Anion Gap 14 mmol/L (10-20); BUN (Urea Nitrogen) 35 mg/dL (8.9-20.6); Calc. Creatinine Clearance 12 mL/min (70-130); Calcium 6.2 mg/dL (7.8-10.44); Carbon Dioxide 23 mmol/L (22-29); Chloride 99 mmol/L (98-107); Estimated GFR-MDRD 6; Glucose 121 mg/dL (70-105); Magnesium 1.7 mg/dL (1.6-2.6); Potassium 4.2 mmol/L (3.5-5.1); Sodium 132 mmol/L (136-145)
[2019-10-27] MEDS ORDERED: Heparin 10,000 UNITS/ 10 ML VIAL ONE (09:28)
[2019-10-27] MEDS ORDERED: Lidocaine 1% w/Epinephrine 1:100K 20 ML VIAL ONE ×2 (12:28→14:04)
[2019-10-27] MEDS ORDERED: Sodium Chloride 0.9% 10 ML ONE (12:28)
[2019-10-27] MEDS ORDERED: Sodium Chloride 0.9% 0 ML ONE (12:28)
[2019-10-27] MEDS ORDERED: Heparin 10,000 UNITS/1 ML VIAL ONE (12:28)
[2019-10-27] MEDS ORDERED: Heparin 5,000 UNITS/ML VIAL ONE (12:28)
[2019-10-27] MEDS ORDERED: Bupivacaine 0.25% HCL 30 ML VIAL ONE ×2 (12:28→14:04)
[2019-10-27] MEDS ORDERED: Protamine Sulfate 50 MG/5 ML VIAL ONE (12:28)
[2019-10-27] MEDS ORDERED: Dexamethasone 20 MG/5 ML VIAL ONE (12:33)
[2019-10-27] MEDS ORDERED: PHENYLEPHRINE-NS 100 MCG/ML 10 ML SYRINGE ONE (12:33)
[2019-10-27] MEDS ORDERED: Rocuronium Bromide 10 MG/ML (10ML VIAL) ONE (12:33)
[2019-10-27] MEDS ORDERED: Glycopyrrolate 0.2 MG/ML 5 ML SYRINGE ONE (12:33)
[2019-10-27] MEDS ORDERED: Ondansetron PF 4 MG/2 ML Vial ONE (12:33)
[2019-10-27] MEDS ORDERED: PROPOFOL 200 MG/20 ML VIAL ONE (12:33)
[2019-10-27] MEDS ORDERED: EPHEDRINE 25 MG/5 ML SYRINGE ONE (12:33)
[2019-10-27] MEDS ORDERED: Lidocaine 1% PF 5 ML VIAL ONE (12:33)
[2019-10-27] MEDS ORDERED: Fentanyl 100 MCG/2 ML VIAL ONE ×2 (13:01→14:23)
[2019-10-27] MEDS ORDERED: Midazolam HCl 2 mg/2 ml Vial ONE (13:01)
[2019-10-27] MEDS ORDERED: Propofol 500 MG/50 ML VIAL ONE ×2 (13:01→15:29)
[2019-10-27] MEDS ORDERED: traMADol HCl 50 MG TAB PO PRN (13:35)
[2019-10-27] MEDS ORDERED: Sodium Chloride 0.9% 20 ML ONE (13:54)
[2019-10-27] MEDS ORDERED: HYDROmorphone 2 MG/ML VIAL SLOW IVP PRN (14:39)
[2019-10-27] MEDS ORDERED: Promethazine HCl 25 MG/ML VIAL IM PRN (14:39)
[2019-10-27] MEDS ORDERED: Ondansetron HCl/PF 4 MG/2 ML Vial IVP PRN (14:39)
[2019-10-27] MEDS ORDERED: Promethazine HCl 25 MG/ML VIAL SLOW IVP PRN (14:39)
[2019-10-27] MEDS ORDERED: Meperidine HCl/PF 25 MG/ML VIAL SLOW IVP PRN (14:39)
--- NOTE | 2019-10-27 14:41 | PRG ---
DATE OF SERVICE: 10/27/2019 SUBJECTIVE: This is a 43-year-old gentleman, being seen for end-stage renal disease. The patient denies any nausea, vomiting, or chest pain. OBJECTIVE: GENERAL: The patient is awake and alert. VITAL SIGNS: Afebrile, pulse 78, breathing at 16, blood pressure 129/79. HEENT: Head normocephalic and atraumatic. Eyes intact, no ulcers. Nose intact, no ulcers. Ears intact, no ulcers. NECK: Supple. No JVD. CHEST: Symmetrical and clear. CARDIOVASCULAR: Shows S1 and S2, no rub, no murmur. GASTROINTESTINAL: Abdomen is soft, bowel sounds positive. EXTREMITIES: Show no edema or ulcers. SKIN: Shows no rash or petechiae. MUSCULOSKELETAL: Shows no joint swelling or stiffness. GENITOURINARY: Shows no Ordonez or CVA tenderness. NEUROLOGIC: Motor intact. Cranial nerves intact. LABORATORY DATA: Reviewed. ASSESSMENT AND RECOMMENDATIONS: 1. Stage 6 chronic kidney disease, stable. 2. Hypertension, stable. 3. Anemia, stable. Plan dialysis today. Job ID: [id number]
[2019-10-27] MEDS ORDERED: Calcium Gluconate 9.2 MEQ in Sodium Chloride 0.9% 100 ML IVPB SCH (15:00)
[2019-10-27] MEDS ORDERED: Promethazine HCl 25 MG/ML VIAL ONE (15:42)
--- NOTE | 2019-10-27 16:24 | RAD ---
PORTABLE CHEST ONE VIEW 10/27/19 at 3:44 p.m. HISTORY: Dialysis catheter placement. FINDINGS/IMPRESSION: Comparison made with exam of 10/23/19. There has been interval placement of a left internal jugular central line with tip in the projection of the SVC. A right internal jugular dialysis catheter has also been placed with tip in the projectio n of the SVC. The heart size is normal. The lungs demonstrate no pneumothoraces, focal areas of conso lidation, or pleural effusions are seen. POS: [facility]
[2019-10-27] MEDS: hydrALAZINE 20 MG/ML VIAL SLOW IVP PRN (16:27)
[2019-10-27] MEDS: Ondansetron PF 4 MG/2 ML Vial IVP PRN (17:10)
--- NOTE | 2019-10-27 17:29 | PDOC.HOSPP ---
- Subjective Encounter Date: 10/27/19 Encounter Time: 09:00 Subjective: no overnight events. this morning, feeling well. Pending procedure - Objective Vital Signs & Weight: Vital Signs (12 hours) Temp Pulse Resp BP Pulse Ox 10/27/19 16:08 98.6 F 98 20 170/80 H 95 10/27/19 07:08 98.9 F 79 15 169/91 H 97 Weight Admit Weight 213 lb 13.568 oz Weight 200 lb 14.4 oz I&O: 10/26/19 10/27/19 10/28/19 06:59 06:59 06:59 Intake Total 1360 2000 580 Output Total 1410 2250 300 Balance -50 -250 280 Result Diagrams: 10/25/19 06:48 10/27/19 06:05 Additional Labs: Accuchecks 10/27/19 10/27/19 10/27/19 17:17 11:19 06:09 POC Glucose 279 H 106 140 H 10/26/19 20:36 POC Glucose 152 H Hospitalist ROS - Review of Systems Constitutional: denies: fever, chills, sweats, weakness, malaise, other Respiratory: denies: cough, dry, shortness of breath, hemoptysis, SOB with excertion, pleuritic pain, sputum, wheezing, other Cardiovascular: denies: chest pain, palpitations, orthopnea, paroxysmal noc. dyspnea, edema, light headedness, other Gastrointestinal: denies: nausea, vomiting, abdominal pain, diarrhea, constipation, melena, hematochezia, other Genitourinary: denies: dysuria, frequency, incontinence, hematuria, retention, other - Medication Medications: Active Medications Generic Name Dose Route Start Last Admin Trade Name Freq PRN Reason Stop Dose Admin Hydrocodone Bitart/Acetaminophen 1 tab 10/24/19 01:50 10/24/19 15:33 [place] 5/325 PO 1 tab Q4H PRN Administration Moderate Pain (4-6) Calcium Carbonate 600 mg 10/24/19 15:00 10/27/19 16:27 Caltrate PO 600 mg TID APURVA Administration Dextrose/Water 25 gm 10/24/19 02:25 10/26/19 05:52 Dextrose 50% SLOW IVP 25 gm PRN PRN Administration Hypoglycemia Divalproex Sodium 500 mg 10/24/19 21:00 10/26/19 19:38 Depakote PO 500 mg HS APURVA Administration Epoetin Venkatesh-epbx 10,000 unit 10/24/19 11:45 10/24/19 12:22 Retacrit SC 10,000 unit Q7D APURVA Administration Famotidine 20 mg 10/25/19 09:00 10/27/19 06:12 Pepcid PO 20 mg QAM APURVA Administration Heparin Sodium (Porcine) 5,000 units 10/24/19 09:00 10/27/19 15:00 Heparin SC Not Given TID APURVA Hydralazine HCl 10 mg 10/24/19 01:50 10/27/19 16:27 Apresoline SLOW IVP 10 mg Q6H PRN Administration SBP GREATER THAN 160 Losartan Potassium 50 mg 10/27/19 09:00 10/27/19 06:13 Cozaar PO 50 mg DAILY APURVA Administration Ondansetron HCl 4 mg 10/24/19 01:50 10/27/19 17:10 Zofran IVP 4 mg Q6H PRN Administration Nausea/Vomiting use 1st Polyethylene Glycol 17 gm 10/24/19 09:00 10/27/19 06:14 Miralax PO Not Given DAILY APURVA Quetiapine Fumarate 100 mg 10/24/19 21:00 10/26/19 19:38 Seroquel PO 100 mg HS APURVA Administration Sevelamer Carbonate 800 mg 10/24/19 12:00 10/27/19 16:27 Renvela PO 800 mg TID-WM APURVA Administration Sodium Chloride 10 ml 10/24/19 09:00 10/27/19 06:14 Flush - Normal Saline IVF 10 ml Q12HR APURVA Administration Sodium Chloride 10 ml 10/23/19 23:31 10/24/19 05:44 Flush - Normal Saline IVF 10 ml PRN PRN Administration Saline Flush Tramadol HCl 50 mg 10/27/19 13:35 10/27/19 16:36 Ultram PO 50 mg Q6H PRN Administration Mild-Moderate Pain (1-5) - Exam General Appearance: NAD, awake alert Heart: RRR, no murmur, no gallops, no rubs, normal peripheral pulses Respiratory: CTAB, no wheezes, no rales, no ronchi, normal chest expansion, no tachypnea, normal percussion Gastrointestinal: soft, non-tender, non-distended, normal bowel sounds, no palpable masses, no hepatomegaly, no splenomegaly, no bruit Extremities: no edema Psychiatric: normal affect, normal behavior, A&O x 3 Hosp A/P - Plan #ESRD Pending fistula, peritoneal dialysis procedure (10/26) #CKD-MBD -supplemented Ca; started calcium carbonate and sevelamer per nephrology -NPO, pending catheter placement and dialysis initiation
[2019-10-27] MEDS ORDERED: Insulin Glargine 20 UNITS in Pre-Filled Syringe 1 EACH SC SCH (21:00)
[2019-10-27] MEDS: HYDROcodone/Acetaminophen 5/325 mg Tablet PO PRN (21:08)
[2019-10-27] MEDS: Divalproex Sodium DR 500 MG TAB PO SCH (21:09)
--- NOTE | 2019-10-27 23:34 | OP ---
DATE OF PROCEDURE: 10/27/2019 PREOPERATIVE DIAGNOSIS: End-stage renal disease, desires renal dialysis for IV access. POSTOPERATIVE DIAGNOSIS: End-stage renal disease, desires renal dialysis for IV access. PROCEDURES: Right arm primary fistula perforating branch antecubital vein to outflow primary cephalic vein, although smaller communication to the basilic vein. 3.5 mm coronary dilator. Laparoscopic peritoneal dialysis catheter, laparoscopic omentopexy. Right IJ cuffed tunneled hemodialysis catheter, left IJ central line. ANESTHESIA: General, local 0.5% Marcaine 30 mL, 0.25% Marcaine 30 mL, 2% Xylocaine with epinephrine 20 mL local anesthetic used. DESCRIPTION OF PROCEDURE: The patient was taken to the operating room where under general anesthesia, neck, chest, right upper extremity, and abdomen clipped of hair, prepared with ChloraPrep and draped in routine fashion. Local anesthetic was infiltrated in the skin and subcutaneous tissue about all operative sites. Ultrasound used to cannulate both the right and left internal jugular veins with a trocar catheter. J-wire was threaded, trocar catheter removed. Skin site enlarged sharply on either side of the J-wire entry site. On the left side, Seldinger technique used to place a triple-lumen catheter, securing with 3-0 nylon suture. Each port aspirated of blood, flushed with saline solution. CHG dressing applied. On the right side, stab incision was made on the right chest. Using the tunneling device, the pre-curved AngioDynamics cuffed tunneled hemodialysis catheter tunneled between the 2 incisions, placed the fabric cuff beneath the skin exit site. Catheter secured with 2 interrupted sutures of 3-0 nylon and Dermabond. Sterile dressing applied. Small and medium size dilators were placed over the J-wire and the internal jugular vein removed. Dilator and Peel-Away sheath placed over the J-wire into the superior vena cava. J-wire and dilator removed. Catheter placed with the Peel-Away sheath. Peel-Away sheath removed. Platysma was approximated with 4-0 Monocryl, skin with subdermal 4-0 Monocryl. Stannards glue applied. Each port aspirated with blood and flushed with saline solution and heparinized saline solution 1000 units of heparin per mL indicating volume of the ports. Fluoroscopic images revealed good line placement bilaterally. Bilateral far lateral subcostal incision made. Pneumoperitoneum to 15 mmHg was obtained with a Veress needle, replaced with a 5 mm port, where the laparoscope inserted. 5 mm port placed and video laparoscope inserted. and contralateral followup port placed. Abdominal cavity was essentially unremarkable grossly. A stab incision was made in the left lower quadrant and slightly superior and medial to this at the level of the umbilicus. A counter incision was made. An 8 mm port placed under laparoscopic visualization directed caudally through the subcutaneous tissue into the rectus sheath, penetrating the peritoneum inferiorly, directing the double cuffed pigtail peritoneal dialysis catheter in the pelvis with internal cuff in the rectus sheath, removing an 8 mm port and placed a [place] dissector through the planned exit site slightly inferior lateral stab incision, grasping the PD catheter and pulling it out the exit site, placed an external cuff beneath the skin exit site. Subcutaneous tissue was approximated with 4-0 Monocryl, skin with subdermal 4-0 Monocryl. Stannards glue applied. Laparoscopic omentopexy performed which was tacked in the omentum superiorly. 0 Vicryl transabdominal wall fixation suture was used. Abdominal cavity noted to be hemostatic as peritoneal dialysis catheter flushed with heparinized saline solution 1000 units of heparin per mL and a cap applied. Irrigant and pneumoperitoneum were evacuated. All instruments were removed. All skin incisions were approximated with subdermal 4-0 Monocryl and Stannards glue applied and sterile dressing placed over the PD catheter. The patient given 6000 units of heparin intravenously. An incision was made in the right wrist carried down to skin and subcutaneous tissue. The cephalic vein was inadequate. The subcutaneous tissue was approximated with 3-0 Monocryl, skin with subdermal 4-0 Monocryl, and Stannards glue applied. Incision was made in the proximal volar forearm below the antecubital fossa and carried down through skin and subcutaneous tissue, dissected free the proximal radial artery and cephalic vein. 6000 units of heparin have been given intravenously as noted previously and perforating branch antecubital vein dissected free, branches were divided between clips and ties and spatulated over branch point, interrogated with coronary dilators. Passed coronary dilators from 2 mm to 3.5 mm coronary dilator without obstruction into a large cephalic vein. There was a small communication to the basilic vein of questionable significance. Proximal radial artery was clamped proximally and distally. Longitudinal arteriotomy made sharply, elongated with Hopkins scissors, and perforating branch was then anastomosed to the proximal radial artery for 2.5 cm anastomoses using continuous suture of 6-0 Prolene. After completion of anastomosis, vascular clamps released, good hemostasis obtained with 6-0 Prolene and 4-0 silk ties. Good Doppler signal noted in the cephalic vein of upper arm. Good hemostasis noted. The patient given 50 mg of protamine intravenously. Subcutaneous tissue was approximated with 3-0 Monocryl, skin with subdermal 4-0 Monocryl, and Stannards glue applied. Job ID: [id number]
[2019-10-28] MEDS: HYDROcodone/Acetaminophen 5/325 mg Tablet PO PRN ×3 (01:43→12:01)
[2019-10-28 07:52] VITALS: TEMP 98.2
[2019-10-28] MEDS: Losartan 25 MG TAB PO SCH (07:54)
[2019-10-28] MEDS: Sevelamer Carbonate 800 MG TAB PO SCH ×2 (07:55→12:02)
[2019-10-28] MEDS: Famotidine 20 MG TAB PO SCH (07:55)
[2019-10-28] MEDS: Calcium Carbonate 600 MG TAB PO SCH ×2 (07:55→16:33)
[2019-10-28] MEDS: Polyethylene Glycol 3350 17 GM Packet PO SCH (07:56)
[2019-10-28] MEDS: Heparin 5,000 UNITS/ML VIAL SC SCH ×2 (07:57→16:33)
[2019-10-28 12:21] VITALS: BP 157/85
--- NOTE | 2019-10-28 12:52 | PRG ---
DATE OF SERVICE: 10/28/2019 Maynor Chaparro is doing well today. He has a good thrill and bruit in his right arm fistula. Cephalic vein is well distended upper arm. This can be used for dialysis access in the future. The patient's perineal dialysis dressing is intact. I have instructed him to leave this dressing on until he sees outpatient peritoneal dialysis nurse next week. When he visit to outpatient dialysis nurse, she will change this dressing, change to the [facility] and begin educational peritoneal dialysis. The patient is utilizing right IJ cuffed tunneled dialysis catheter. Right groin dialysis catheter has been removed per my orders I believe. Left IJ central line can be removed prior to discharge. At this point, I will see him as needed in this hospitalization. He should follow up my office in the next 3 to 4 weeks. Job ID: [id number]
--- NOTE | 2019-10-28 18:46 | PRG ---
DATE OF SERVICE: 10/28/2019 SUBJECTIVE: 43-year-old gentleman, being seen for end-stage renal disease. The patient denied nausea, vomiting, or chest pain. PHYSICAL EXAMINATION: GENERAL: Patient is awake and alert. VITAL SIGNS: Pulse 79, breathing 16, blood pressure 142/78. HEENT: Head normocephalic and atraumatic. Eyes intact, no ulcers. Nose intact, no ulcers. Ears intact, no ulcers. Neck: Supple. No JVD. Chest: Symmetrical and clear. Cardiovascular: Shows S1 and S2, no rub, no murmur. Gastrointestinal: Abdomen is soft, bowel sounds positive. Extremities: Show no edema or ulcers. Skin: Shows no rash or petechiae. Musculoskeletal: Shows no joint swelling or stiffness. Genitourinary: Shows no Ordonez or CVA tenderness. Neurologic: Motor intact. Cranial nerves intact. LABORATORY DATA: Hemoglobin 9.6. ASSESSMENT: 1. Stage 6 chronic kidney disease, continue hemodialysis. 2. Hypertension, stable. 3. Anemia, stable. Medications based on GFR appropriate. Job ID: [id number]
--- NOTE | 2019-10-29 13:36 | DIS ---
DATE OF ADMISSION: 10/23/2019 DATE OF DISCHARGE: 10/28/2019 HOSPITAL COURSE: Mr. Chaparro is a 43-year-old male with a medical history of type 2 diabetes, CKD 4, presented to the ED with hyperglycemia and muscle twitches. He was diagnosed with severe hypocalcemia. Nephrology was consulted and a dialysis catheter was placed by the surgical team. The patient was started on hemodialysis while his electrolytes were being corrected. He tolerated the procedures well, the dialysis well, and symptoms have completely resolved prior to discharge. He was discharged home after arrangements for outpatient dialysis were made, hemodynamically stable with no complaints. MEDICATIONS: New medications: 1. Tylenol. 2. Calcium carbonate. 3. norco q.4 hours p.r.n. pain. 4. Losartan. Continued medications: 1. Seroquel. 2. Depakote. 3. Humalog. 4. Humulin 70/30. Job ID: [id number] MTDD
== END 2019-10-28 16:55 | disposition home or self-care (01) | DRG 674 ==
LOC: ERS 18:20 → 2NO 23:40
PROVIDERS: ADMIT Internal Medicine; ATTEND Internal Medicine
PROC: 5A1D70Z Performance of Urinary Filtration, Intermittent, Less than 6 Hours Per Day (ICD-10-PCS; 2019-10-24)
PROC: 031B0ZF Bypass Right Radial Artery to Lower Arm Vein, Open Approach (ICD-10-PCS; 2019-10-24)
PROC: 031B0ZF Bypass Right Radial Artery to Lower Arm Vein, Open Approach (ICD-10-PCS; principal; 2019-10-27)
PROC: 0WHG43Z Insertion of Infusion Device into Peritoneal Cavity, Percutaneous Endoscopic Approach (ICD-10-PCS; 2019-10-27)
PROC: 0JH63XZ Insertion of Tunneled Vascular Access Device into Chest Subcutaneous Tissue and Fascia, Percutaneous Approach (ICD-10-PCS; 2019-10-27)
PROC: 02HV33Z Insertion of Infusion Device into Superior Vena Cava, Percutaneous Approach (ICD-10-PCS; 2019-10-27)
PROC: B518ZZA Fluoroscopy of Superior Vena Cava, Guidance (ICD-10-PCS; 2019-10-27)
PROC: 02HV33Z Insertion of Infusion Device into Superior Vena Cava, Percutaneous Approach (ICD-10-PCS; 2019-10-27)
PROC: B548ZZA Ultrasonography of Superior Vena Cava, Guidance (ICD-10-PCS; 2019-10-27)
DX: N17.9 Acute kidney failure, unspecified (principal); I12.0 Hypertensive chronic kidney disease with stage 5 chronic kidney disease or end stage renal disease; E87.2 Acidosis; E10.22 Type 1 diabetes mellitus with diabetic chronic kidney disease; F41.9 Anxiety disorder, unspecified; F32.9 Major depressive disorder, single episode, unspecified; E10.65 Type 1 diabetes mellitus with hyperglycemia; E86.0 Dehydration; I45.81 Long QT syndrome; N18.6 End stage renal disease; R82.81 Pyuria; F12.10 Cannabis abuse, uncomplicated; E66.9 Obesity, unspecified; D63.1 Anemia in chronic kidney disease; E83.89 Other disorders of mineral metabolism; E83.51 Hypocalcemia; E87.5 Hyperkalemia; E83.39 Other disorders of phosphorus metabolism; Z68.31 Body mass index [BMI] 31.0-31.9, adult; Z79.899 Other long term (current) drug therapy; Z79.4 Long term (current) use of insulin
CPT/HCPCS: 36415; 36416; 71045; 74177; 76770; 80048; 80053; 81003; 81015; 83690; 83735; 83880; 84100; 84484; 85025; 86580; 86704; 86706; 86803; 87086; 87340; 90935; 93005; 93970; 96361; 96374; C1752; C1769; G0257; G0365; J0360; J0690; J0696; J1100; J1644; J1815; J2001; J2250; J2270; J2405; J2550; J2704; J2720; J3010; J3490; Q5105; S0020

== ENCOUNTER 2020-02-06 00:40 | Inpatient (IN) | payer MEDICAID, OTHER ==
[2020-02-06 01:10] LABS: #Basophils 0.1 thou/uL (0.0-0.2); #Lymphocytes 2.2 thou/uL (1.20-3.40); #Monocytes 0.5 thou/uL (0.11-0.59); #Neutrophils 6.8 thou/uL (1.40-6.50); %Basophils 0.6 % (0.0-1.0); %Eosinophils 9.4 % (0.0-10.0); %Lymphocytes 20.6 % (21.0-51.0); %Monocytes 4.7 % (0.0-10.0); %Neutrophils 64.7 % (42.0-75.0); Hemoglobin 10.2 g/dL (14.0-18.0); Mean Corpuscular HGB CONC 33.9 g/dL (32.0-36.0); Mean Corpuscular Hemoglobin 31.5 pg (27.0-31.0); Mean Corpuscular Volume 92.9 fL (78.0-98.0); Platelet Count 285 thou/uL (130-400); RBC Distribution Width 15.8 % (11.5-14.5); Red Blood Cell (RBC) Count 3.23 mill/uL (4.70-6.10); White Blood Cell (WBC) Count 10.5 thou/uL (4.8-10.8)
[2020-02-06 01:37] LABS: ALT (SGPT) 16 U/L (8-55); AST (SGOT) 23 U/L (5-34); Albumin 3.6 g/dL (3.5-5.0); Alkaline Phosphatase 99 U/L (40-110); Anion Gap 22 mmol/L (10-20); BUN (Urea Nitrogen) 78 mg/dL (8.9-20.6); Bilirubin, Total 0.7 mg/dL (0.2-1.2); Calc. Creatinine Clearance 0 mL/min (70-130); Calcium 7.2 mg/dL (7.8-10.44); Carbon Dioxide 23 mmol/L (22-29); Chloride 99 mmol/L (98-107); Estimated GFR-MDRD 4; Globulin 2.7 g/dL (2.4-3.5); Glucose 109 mg/dL (70-105); Protein, Total 6.3 g/dL (6.0-8.3); Sodium 137 mmol/L (136-145)
[2020-02-06 01:47] LABS: Potassium 7.2 mmol/L (3.5-5.1)
[2020-02-06] MEDS ORDERED: Sodium Bicarb 50 MEQ/50 ML VIAL ONE (02:14)
[2020-02-06] MEDS ORDERED: Calcium Chloride 1 GM/10 ML Abboject SYRINGE ONE (02:14)
[2020-02-06] MEDS ORDERED: Insulin Regular 300 UNITS/3 ML VIAL ONE (02:14)
[2020-02-06] MEDS ORDERED: Dextrose 50% Abboject 50 ML SYRINGE ONE ×2 (02:14→03:45)
[2020-02-06] MEDS ORDERED: Nitroglycerin 2% Ointment 1 INCH/1 GM Packet TOP SCH (03:00)
[2020-02-06 03:23] LABS: HBSAg Index 0.19 S/CO (0-0.99); Hep B Surf Ag Non-Reactive S/CO (NonReactive)
[2020-02-06] MEDS ORDERED: Labetalol HCl 100 MG/20 ML VIAL SLOW IVP PRN (03:24)
[2020-02-06] MEDS ORDERED: cloNIDine 0.1 MG TAB PO PRN (03:24)
[2020-02-06] MEDS ORDERED: Morphine 2 MG/ML VIAL SLOW IVP PRN (03:24)
[2020-02-06] MEDS ORDERED: Ondansetron PF 4 MG/2 ML Vial IVP PRN (03:24)
[2020-02-06] MEDS ORDERED: Promethazine HCl 12.5 MG in Sodium Chloride 0.9% 50 ML IVPB PRN (03:24)
[2020-02-06] MEDS ORDERED: Acetaminophen 325 MG TAB PO PRN (03:24)
[2020-02-06] MEDS ORDERED: HYDROcodone/Acetaminophen 5/325 mg Tablet PO PRN (03:24)
[2020-02-06] MEDS ORDERED: Guaifenesin DM 100-10/5 ML UDCUP PO PRN (03:24)
[2020-02-06] MEDS ORDERED: Nitroglycerin 2% Ointment 1 INCH/1 GM Packet ONE (03:26)
[2020-02-06] MEDS ORDERED: Electrolyte Replacement Protoc 1 EACH EACH FS SCH (03:30)
--- NOTE | 2020-02-06 03:34 | PDOC.HHP ---
Hospitalist HPI - History of Present Illness Shortness of breath History of Present Illness: Patient is a 43 year old male with PMH T1DM, ESRD on PD and now HD who presents to ED for shortness of breath and chest pain. Patient was previously on PD with Dr Mcdaniel, switched to HD last week, last session 2 days ago, last night developed chest pain and shortness of breath, center of chest tight/dull, worse with inspiration, worse with lying flat. Here, presents with hypoxia and requiring BIPAP, hyperkalemia to 7.2, EKG changes. Patient given IV bicarbonate , calcium gluconate, D50/insulin, keyexelate. EKG sinus rate 89 with peaked T waves. ED discussed with Dr Mcdaniel who will evaluate with plans for emergent HD. patint to be admitted to [facility] for further care. Hospitalist ROS - Review of Systems Constitutional: denies: fever, chills, sweats, weakness, malaise, other Eyes: denies: pain, vision change, conjunctivae inflammation, eyelid inflammation, redness, other ENT: denies: ear pain, ear discharge, nose pain, nose discharge, nose congestion , mouth pain, mouth swelling, throat pain, throat swelling, other Respiratory: reports: cough, shortness of breath, SOB with excertion, pleuritic pain. denies: dry, hemoptysis, sputum, wheezing, other Cardiovascular: reports: chest pain. denies: palpitations, orthopnea, paroxysmal noc. dyspnea, edema, light headedness, other Gastrointestinal: denies: nausea, vomiting, abdominal pain, diarrhea, constipation, melena, hematochezia, other Genitourinary: denies: dysuria, frequency, incontinence, hematuria, retention, other Musculoskeletal: denies: neck pain, shoulder pain, arm pain, back pain, hand pain, leg pain, foot pain, other Skin: denies: rash, lesions, alcides, bruising, other Neurological: denies: weakness, numbness, incoordination, change in speech, confusion, seizures, other All other systems reviewed; all pertinent +/- noted in HPI/Subj - Medication Medications: Tresiba U-100 Insulin Sat Feb 06, 2020 00:50 Gutierrez RN, Daniel solution : Strength - 100 unit/mL : SUBCUTANEOUS Patient Dose: 12 units Subcutaneous once a day. SEROquel Sat Feb 06, 2020 00:51 Gutierrez RN, Daniel tablet : Strength - 200 mg : ORAL Patient Dose: Unknown. sevelamer carbonate Sat Feb 06, 2020 00:51 Gutierrez RN, Daniel tablet : Strength - 800 mg : ORAL Patient Dose: 1600 mg Oral. calcium carbonate oral suspension Sat Feb 06, 2020 00:52 Gutierrez RN, Daniel suspension : Strength - 500 mg/5 mL calcium (1,250 mg/5 mL) : ORAL Patient Dose: 2000 mg Oral. pantoprazole intravenous Sat Feb 06, 2020 00:52 Gutierrez RN, Daniel recon soln : Strength - 40 mg : INTRAVENOUS Patient Dose: Unknown. NIFEdipine Sat Feb 06, 2020 00:52 Gutierrez RN, Daniel tablet extended release : Strength - 60 mg : ORAL Patient Dose: Unknown. isosorbide mononitrate Sat Feb 06, 2020 00:53 Gutierrez RN, Daniel tablet extended release 24 hr : Strength - 30 mg : ORAL Patient Dose: Unknown. calcitriol oral Sat Feb 06, 2020 00:53 Gutierrez RN, Daniel capsule : Strength - 0.5 mcg : ORAL Patient Dose: Unknown. gabapentin Sat Feb 06, 2020 00:53 Gutierrez RN, Daniel capsule : Strength - 300 mg : ORAL Patient Dose: Unknown. cyclobenzaprine Sat Feb 06, 2020 00:53 Gutierrez RN, Daniel tablet : Strength - 10 mg : ORAL Patient Dose: Unknown. Hospitalist History - Past Medical History Other Medical History: T1DM DKA anxiety depression ckd/close to esrd - Past Surgical History Past Surgical History: reports: no pertinent history Other Surgical History: AVF RUE - Family History Family History: reports: no pertinent history - Social History Alcohol: reports: None Drugs: reports: marijuana - Exam General Appearance: NAD, awake alert Eye: PERRL, anicteric sclera ENT: normocephalic atraumatic, no oropharyngeal lesions, moist mucosa Neck: supple, symmetric, no JVD, no thyromegaly, no lymphadenopathy, no carotid bruit Heart: RRR, no murmur, no gallops, no rubs, normal peripheral pulses Respiratory: CTAB, no wheezes, no rales, no ronchi, normal chest expansion, no tachypnea, normal percussion Respiratory - other findings: dependant crackles Gastrointestinal: soft, non-tender, non-distended, normal bowel sounds, no palpable masses, no hepatomegaly, no splenomegaly, no bruit Extremities: no cyanosis, no clubbing, no edema Skin: normal turgor, no lesions, no rashes Neurological: cranial nerve grossly intact, normal sensation to touch, no weakness, no focal deficits, no new deficit Musculoskeletal: normal tone, normal strength, no muscle wasting Psychiatric: normal affect, normal behavior, A&O x 3 Hospitalist Results - Labs Result Diagrams: 02/06/20 00:58 02/06/20 00:58 Lab results: WBC 10.5 thou/uL (4.8-10.8) 02/06/20 00:58 Hgb 10.2 g/dL (14.0-18.0) L 02/06/20 00:58 Hct 30.0 % (42.0-52.0) L 02/06/20 00:58 MCV 92.9 fL (78.0-98.0) 02/06/20 00:58 Plt Count 285 thou/uL (130-400) 02/06/20 00:58 Neutrophils % 64.7 % (42.0-75.0) 02/06/20 00:58 Sodium 137 mmol/L (136-145) 02/06/20 00:58 Potassium 7.2 mmol/L (3.5-5.1) H* 02/06/20 00:58 Chloride 99 mmol/L (98-107) 02/06/20 00:58 Carbon Dioxide 23 mmol/L (22-29) 02/06/20 00:58 BUN 78 mg/dL (8.9-20.6) H 02/06/20 00:58 Creatinine 14.74 mg/dL (0.7-1.3) H 02/06/20 00:58 Glucose 109 mg/dL (70-105) H 02/06/20 00:58 Calcium 7.2 mg/dL (7.8-10.44) L 02/06/20 00:58 Total Bilirubin 0.7 mg/dL (0.2-1.2) 02/06/20 00:58 AST 23 U/L (5-34) 02/06/20 00:58 ALT 16 U/L (8-55) 02/06/20 00:58 Alkaline Phosphatase 99 U/L (40-110) 02/06/20 00:58 Troponin I 0.026 ng/mL (< 0.028) 02/06/20 00:58 B-Natriuretic Peptide 755.8 pg/mL (0-100) H 02/06/20 00:58 Serum Total Protein 6.3 g/dL (6.0-8.3) 02/06/20 00:58 Albumin 3.6 g/dL (3.5-5.0) 02/06/20 00:58 Additional comment: VITAL SIGNS Sat Feb 06, 2020 01:19 MARIUSZ Jones, Rex BP: 164/90 Pulse: 89 Resp: 24 Temp: 98.3 (Oral) Pain: 8 O2 sat: 95 on (4L Oxygen) Time: 02/06/2020 01:19. labs, available imaging reports, EKG reviewed, NSR 89 bpm w/ peaked T waves. Hospitalist H&P A/P - Plan Plan: Patient is a 43 year old male with PMH T1DM, ESRD who presents to ED for SOB and Chest pain and found to have hyperkalemia. # ESRD on HD w/ volume overload and hyperkalemia # chest pain - likely secondary to HTN and volume overload # acute hypoxic respiratory failure - again, likely secondary to volume overload apparant failure of newly initiated HD, no issues with AVF per patient and completed sessions, last one # hyperkalemia - due to HD failure - GFR < 15, suspect will need to initiate HD this admission, poor outpatient follow up since discharge from [facility] 9 months ago - NPO - hydrated in ED, acute worsening of renal failure may be secondary to dehydration from elevated blood sugar - consult nephrology - consult case management for insurance assistance, may get medicaid if esrd, wants to follow up but having difficulties with managing care as outpatient # T1DM - on treciba, resume home meds once med rec complete - sugar on the low side, continue SSI for now and restart normal insulin once food can be started, may need D5 if not eating for some time to prevent DKA # mood disorder - continue home meds once med rec complete # hypocalcemia - receiving cacium gluconate for hyperkalemia DVT ppx GI ppx 45 minutes critical care time
[2020-02-06] MEDS ORDERED: HumaLOG 300 UNITS/3 ML VIAL SC PRN (03:53)
[2020-02-06] MEDS ORDERED: Dextrose 50% Abboject 50 ML SYRINGE SLOW IVP PRN (03:53)
[2020-02-06 05:13] VITALS: BMI 33.0
--- NOTE | 2020-02-06 07:54 | RAD ---
Exam: Chest one view HISTORY:Chest pain. Shortness of breath. Comparison: 12/28/2019 FINDINGS: Cardiac silhouette: Normal Aorta: Unremarkable Pulmonary vessels: Normal Costophrenic angles: Clear LUNGS: Persistent diffuse interstitial and scattered alveolar opacities. Pneumothorax: None Osseous abnormalities: None IMPRESSION: Persistent lung parenchymal opacification. Correlate for interstitial infiltrate.
[2020-02-06 08:39] LABS: #Basophils 0.1 thou/uL (0.0-0.2); #Eosinphils 0.5 thou/uL (0.0-0.7); #Lymphocytes 1.6 thou/uL (1.20-3.40); #Monocytes 0.3 thou/uL (0.11-0.59); #Neutrophils 7.2 thou/uL (1.40-6.50); %Basophils 0.8 % (0.0-1.0); %Eosinophils 5.3 % (0.0-10.0); %Lymphocytes 16.4 % (21.0-51.0); %Neutrophils 74.5 % (42.0-75.0); Hemoglobin 9.9 g/dL (14.0-18.0); Mean Corpuscular HGB CONC 33.1 g/dL (32.0-36.0); Mean Corpuscular Volume 93.8 fL (78.0-98.0); Mean Platelet Volume 7.2 fL (7.4-10.4); Platelet Count 283 thou/uL (130-400); RBC Distribution Width 16.1 % (11.5-14.5); Red Blood Cell (RBC) Count 3.19 mill/uL (4.70-6.10); White Blood Cell (WBC) Count 9.7 thou/uL (4.8-10.8)
[2020-02-06] MEDS: Polyethylene Glycol 3350 17 GM Packet PO SCH (10:21)
[2020-02-06] MEDS: Heparin 5,000 UNITS/ML VIAL SC SCH ×3 (10:21→20:06)
[2020-02-06] MEDS: Famotidine 20 MG TAB PO SCH (10:21)
[2020-02-06] MEDS: Nitroglycerin 2% Ointment 1 INCH/1 GM Packet TOP SCH ×2 (10:21→20:06)
[2020-02-06 10:44] LABS: Anion Gap 19 mmol/L (10-20); BUN (Urea Nitrogen) 33 mg/dL (8.9-20.6); Calc. Creatinine Clearance 17 mL/min (70-130); Calcium 8.3 mg/dL (7.8-10.44); Carbon Dioxide 26 mmol/L (22-29); Chloride 97 mmol/L (98-107); Estimated GFR-MDRD 8; Glucose 83 mg/dL (70-105); Magnesium 1.9 mg/dL (1.6-2.6); Potassium 4.5 mmol/L (3.5-5.1); Sodium 137 mmol/L (136-145)
[2020-02-06 16:07] LABS: SARS-CoV-2 MS2 Positive; SARS-CoV-2 N Gene Negative; SARS-CoV-2 S Gene Negative; SARS-CoV-2 by NAA Not Detected (NotDetected); SARS-CoV-2 orf1ab Negative
--- NOTE | 2020-02-06 16:40 | CON ---
DATE OF CONSULTATION: REASON FOR CONSULTATION: Hyperkalemia. HISTORY OF PRESENT ILLNESS: A 44-year-old gentleman, who missed dialysis, presented to the hospital with a potassium of 7.2. The patient denied nausea, vomiting, or chest pain. PAST MEDICAL HISTORY: Significant for end-stage renal disease, hypertension, anemia, hyperkalemia, secondary hyperparathyroidism, anxiety, depression, AV fistula, tunneled dialysis catheter, PD catheter. SOCIAL HISTORY: No alcohol or drug abuse. FAMILY HISTORY: Negative for ESRD. ALLERGIES: REVIEWED. HOME MEDICATIONS: List reviewed. HOSPITAL MEDICATIONS: List reviewed. PHYSICAL EXAMINATION: General: The patient is awake and alert. Vital Signs: Afebrile, pulse 75, breathing at 16, blood pressure 123/78. HEENT: Head normocephalic and atraumatic. Eyes intact, no ulcers. Nose intact, no ulcers. Ears intact, no ulcers. Neck: Supple. No JVD. Chest: Symmetrical and clear. Cardiovascular: Shows S1 and S2, no rub, no murmur. Gastrointestinal: Abdomen is soft, bowel sounds positive. Extremities: Show no edema or ulcers. Skin: Shows no rash or petechiae. Musculoskeletal: Shows no joint swelling or stiffness. Genitourinary: Shows no Ordonez or CVA tenderness. Neurologic: Motor intact. Cranial nerves intact. LABORATORY DATA: Show potassium was 7.2. ASSESSMENT AND PLAN: 1. Stage 6 chronic kidney disease, plan dialysis. 2. Hypertension, stable. 3. Anemia, stable. 4. Medication based on GFR, appropriate. We will plan urgent dialysis. Nurse was called. Job ID: [id number]
[2020-02-06] MEDS: hydrALAZINE 20 MG/ML VIAL SLOW IVP PRN (17:21)
[2020-02-06 17:26] VITALS: BP 174/106
[2020-02-07] MEDS: hydrALAZINE 20 MG/ML VIAL SLOW IVP PRN ×2 (01:14→05:06)
[2020-02-07 03:53] LABS: #Basophils 0.1 thou/uL (0.0-0.2); #Eosinphils 0.8 thou/uL (0.0-0.7); #Lymphocytes 2.3 thou/uL (1.20-3.40); #Monocytes 0.5 thou/uL (0.11-0.59); #Neutrophils 4.5 thou/uL (1.40-6.50); %Basophils 0.8 % (0.0-1.0); %Eosinophils 10.1 % (0.0-10.0); %Lymphocytes 27.9 % (21.0-51.0); %Neutrophils 55.1 % (42.0-75.0); Hemoglobin 9.3 g/dL (14.0-18.0); Mean Corpuscular HGB CONC 33.2 g/dL (32.0-36.0); Mean Corpuscular Hemoglobin 30.6 pg (27.0-31.0); Mean Corpuscular Volume 92.1 fL (78.0-98.0); Mean Platelet Volume 8.1 fL (7.4-10.4); Platelet Count 249 thou/uL (130-400); RBC Distribution Width 15.8 % (11.5-14.5); Red Blood Cell (RBC) Count 3.03 mill/uL (4.70-6.10); White Blood Cell (WBC) Count 8.2 thou/uL (4.8-10.8)
[2020-02-07] MEDS: Nitroglycerin 2% Ointment 1 INCH/1 GM Packet TOP SCH ×2 (09:59→21:02)
[2020-02-07] MEDS: Famotidine 20 MG TAB PO SCH (09:59)
[2020-02-07] MEDS: Polyethylene Glycol 3350 17 GM Packet PO SCH (10:00)
[2020-02-07] MEDS: Heparin 5,000 UNITS/ML VIAL SC SCH ×3 (10:00→21:01)
[2020-02-07 11:05] LABS: #Basophils 0.1 thou/uL (0.0-0.2); #Eosinphils 0.9 thou/uL (0.0-0.7); #Lymphocytes 2.1 thou/uL (1.20-3.40); #Monocytes 0.5 thou/uL (0.11-0.59); #Neutrophils 4.7 thou/uL (1.40-6.50); %Basophils 0.7 % (0.0-1.0); %Eosinophils 11.3 % (0.0-10.0); %Lymphocytes 25.1 % (21.0-51.0); %Monocytes 6.2 % (0.0-10.0); %Neutrophils 56.7 % (42.0-75.0); Hemoglobin 9.6 g/dL (14.0-18.0); Mean Corpuscular HGB CONC 33.3 g/dL (32.0-36.0); Mean Corpuscular Hemoglobin 30.7 pg (27.0-31.0); Mean Corpuscular Volume 92.1 fL (78.0-98.0); Mean Platelet Volume 7.8 fL (7.4-10.4); Platelet Count 240 thou/uL (130-400); Red Blood Cell (RBC) Count 3.14 mill/uL (4.70-6.10); White Blood Cell (WBC) Count 8.2 thou/uL (4.8-10.8)
[2020-02-07 11:26] LABS: Anion Gap 21 mmol/L (10-20); BUN (Urea Nitrogen) 49 mg/dL (8.9-20.6); Calc. Creatinine Clearance 12 mL/min (70-130); Carbon Dioxide 23 mmol/L (22-29); Chloride 93 mmol/L (98-107); Estimated GFR-MDRD 5; Glucose 201 mg/dL (70-105); Potassium 5.6 mmol/L (3.5-5.1); Sodium 131 mmol/L (136-145)
[2020-02-07] MEDS ORDERED: EPOETIN ALFA-EPBX (ESRD) 10,000 UNIT/ML VIAL SC SCH (12:00)
[2020-02-07] MEDS: Sevelamer Carbonate 800 MG TAB PO SCH ×2 (12:02→17:05)
[2020-02-07] MEDS: Calcium Carbonate 500 MG ChewTAB PO SCH ×2 (12:02→17:05)
[2020-02-07] MEDS ORDERED: Insulin Glargine 12 UNITS in Pre-Filled Syringe 1 EACH SC SCH (12:15)
--- NOTE | 2020-02-07 14:43 | PRG ---
DATE OF SERVICE: 02/07/2020 SUBJECTIVE: A 44-year-old gentleman, being seen for end-stage renal disease. The patient denied any nausea or vomiting, but has chest heaviness. On exam, the patient is resting. PHYSICAL EXAMINATION: General: The patient is awake and alert. Vital Signs: Afebrile, pulse 85, breathing at 16, blood pressure 165/93. HEENT: Head normocephalic and atraumatic. Eyes intact, no ulcers. Nose intact, no ulcers. Ears intact, no ulcers. Neck: Supple. No JVD. Chest: Symmetrical and clear. Cardiovascular: Shows S1 and S2, no rub, no murmur. Gastrointestinal: Abdomen is soft, bowel sounds positive. Extremities: Show no edema or ulcers. Skin: Shows no rash or petechiae. Musculoskeletal: Shows no joint swelling or stiffness. Genitourinary: Shows no Ordonez or CVA tenderness. Neurologic: Motor intact. Cranial nerves intact. LABORATORY DATA: Showed hemoglobin 9.6. Potassium 5.6. ASSESSMENT AND PLAN: 1. Stage 6 chronic kidney disease, plan dialysis. 2. Hypertension, plan ultrafiltration. 3. Anemia, stable. 4. Hyperkalemia, plan dialysis. Job ID: [id number]
--- NOTE | 2020-02-07 18:33 | PDOC.HOSPP ---
- Subjective Encounter Date: 02/07/20 Encounter Time: 18:32 Subjective: Pt is c/o some chest tightness - Objective Vital Signs & Weight: Vital Signs (12 hours) Temp Pulse Ox 02/07/20 15:20 97.9 F 02/07/20 11:15 97.9 F 02/07/20 07:32 100 02/07/20 07:13 98.6 F Weight Weight 211 lb Most Recent Monitor Data Heart Rate from ECG 87 NIBP 134/92 NIBP BP-Mean 106 Respiration from ECG 3 SpO2 98 I&O: 02/06/20 02/07/20 02/08/20 06:59 06:59 06:59 Intake Total 1870 Output Total 4550 Balance -2680 Result Diagrams: 02/07/20 10:58 02/07/20 10:58 Additional Labs: Accuchecks 02/07/20 02/07/20 02/07/20 16:43 10:47 05:55 POC Glucose 124 H 200 H 157 H 02/06/20 20:12 POC Glucose 129 H Hospitalist ROS - Review of Systems Constitutional: denies: fever, chills, sweats, weakness, malaise, other Eyes: denies: pain, vision change, conjunctivae inflammation, eyelid inflammation, redness, other ENT: denies: ear pain, ear discharge, nose pain, nose discharge, nose congestion , mouth pain, mouth swelling, throat pain, throat swelling, other Cardiovascular: reports: chest pain Gastrointestinal: denies: nausea, vomiting, abdominal pain, diarrhea, constipation, melena, hematochezia, other Genitourinary: denies: dysuria, frequency, incontinence, hematuria, retention, other Musculoskeletal: denies: neck pain, shoulder pain, arm pain, back pain, hand pain, leg pain, foot pain, other Skin: denies: rash, lesions, alcides, bruising, other Neurological: denies: weakness, numbness, incoordination, change in speech, confusion, seizures, other - Medication Medications: Active Medications Generic Name Dose Route Start Last Admin Trade Name Freq PRN Reason Stop Dose Admin Calcium Carbonate 1,000 mg 02/07/20 12:00 02/07/20 17:05 Tums PO 1,000 mg TID-WM APURVA Administration Clonidine 0.1 mg 02/06/20 03:24 02/06/20 20:13 Catapres PO 0.1 mg BIDPRN PRN Administration SBP > 160, use second Dextrose/Water 25 gm 02/06/20 03:53 02/06/20 05:23 Dextrose 50% SLOW IVP 25 gm PRN PRN Administration Hypoglycemia Epoetin Venkatesh-epbx 10,000 unit 02/07/20 12:00 02/07/20 18:07 Retacrit SC 10,000 unit Q7D APURVA Administration Famotidine 20 mg 02/06/20 09:00 02/07/20 09:59 Pepcid PO 20 mg DAILY APURVA Administration Heparin Sodium (Porcine) 5,000 units 02/06/20 09:00 02/07/20 16:37 Heparin SC Not Given TID APURVA Hydralazine HCl 10 mg 02/06/20 03:24 02/07/20 05:06 Apresoline SLOW IVP 10 mg Q6H PRN Administration SBP GREATER THAN 160 Nitroglycerin 1 inch 02/06/20 09:00 02/07/20 09:59 Nitro-Bid 2% Ointment TOP 1 inch BID APURVA Administration Polyethylene Glycol 17 gm 02/06/20 09:00 02/07/20 10:00 Miralax PO Not Given DAILY APURVA Sevelamer Carbonate 1,600 mg 02/07/20 12:00 02/07/20 17:05 Renvela PO 1,600 mg TID-WM APURVA Administration - Exam General Appearance: awake alert Eye: PERRL, anicteric sclera ENT: normocephalic atraumatic, no oropharyngeal lesions Neck: supple, symmetric, no JVD, no thyromegaly Heart: RRR, no murmur, no gallops, no rubs, normal peripheral pulses Respiratory: CTAB, no wheezes, no rales, no ronchi, normal chest expansion Gastrointestinal: soft, non-tender, non-distended, normal bowel sounds Extremities: no cyanosis, no clubbing, no edema Skin: no lesions, no rashes Neurological: cranial nerve grossly intact, no focal deficits Musculoskeletal: normal strength, no muscle wasting Psychiatric: normal affect, A&O x 3 Hosp A/P (1) ESRD needing dialysis Code(s): N18.6 - END STAGE RENAL DISEASE; Z99.2 - DEPENDENCE ON RENAL DIALYSIS Status: Acute Plan: Pt is s/p emergent HD. He is a TTS schedule, will f/u with Renal to determine if pt will need further HD before dc home (2) Hyperkalemia Code(s): E87.5 - HYPERKALEMIA Status: Acute Plan: Still high, s/p HD. Will likely require another round of HD. (3) HTN (hypertension) Code(s): I10 - ESSENTIAL (PRIMARY) HYPERTENSION Status: Acute Qualifiers: Hypertension type: essential hypertension Qualified Code(s): I10 - Essential (primary) hypertension Plan: Fairly stable. Will resume BP meds. Monitor BP. (4) Diabetes Code(s): E11.9 - TYPE 2 DIABETES MELLITUS WITHOUT COMPLICATIONS Status: Acute Qualifiers: Diabetes mellitus type: type 1 Diabetes mellitus complication status: with kidney complications Diabetes mellitus complication detail: with chronic kidney disease Chronic kidney disease stage: on chronic dialysis Qualified Code(s): E10.22 - Type 1 diabetes mellitus with diabetic chronic kidney disease ; N18.6 - End stage renal disease; Z99.2 - Dependence on renal dialysis Plan: Continue insulin, cover with SSI. (5) Chest pain Code(s): R07.9 - CHEST PAIN, UNSPECIFIED Status: Acute Plan: CP may be from vol overload, will trend troponins. (6) Volume overload Code(s): E87.70 - FLUID OVERLOAD, UNSPECIFIED Status: Acute Plan: Improved s/p HD - Plan DVT proph w/SCDs PPx: SCDs. CODE: FULL. Dispo: Cont current mgt. Likely dc tmr.
[2020-02-07] MEDS ORDERED: Non-Formulary Item 1 EACH (Carvedilol [Carvedilol] 12.5 MG) PO SCH (21:00)
[2020-02-07] MEDS ORDERED: Cyclobenzaprine 10 MG TAB PO SCH (21:00)
[2020-02-07] MEDS: Gabapentin 300 MG CAP PO SCH (21:02)
[2020-02-07] MEDS: Carvedilol 6.25 MG TAB PO SCH (21:02)
[2020-02-08 04:26] LABS: #Basophils 0.1 thou/uL (0.0-0.2); #Eosinphils 0.8 thou/uL (0.0-0.7); #Lymphocytes 2.4 thou/uL (1.20-3.40); #Monocytes 0.6 thou/uL (0.11-0.59); #Neutrophils 3.1 thou/uL (1.40-6.50); %Basophils 0.9 % (0.0-1.0); %Eosinophils 11.4 % (0.0-10.0); %Neutrophils 44.8 % (42.0-75.0); Hemoglobin 8.6 g/dL (14.0-18.0); Mean Corpuscular HGB CONC 33.3 g/dL (32.0-36.0); Mean Corpuscular Hemoglobin 30.6 pg (27.0-31.0); Platelet Count 210 thou/uL (130-400); RBC Distribution Width 15.9 % (11.5-14.5)
[2020-02-08 04:59] LABS: Anion Gap 14 mmol/L (10-20); BUN (Urea Nitrogen) 34 mg/dL (8.9-20.6); Calc. Creatinine Clearance 14 mL/min (70-130); Calcium 7.6 mg/dL (7.8-10.44); Carbon Dioxide 29 mmol/L (22-29); Chloride 96 mmol/L (98-107); Estimated GFR-MDRD 7; Glucose 204 mg/dL (70-105); Magnesium 1.9 mg/dL (1.6-2.6); Potassium 4.6 mmol/L (3.5-5.1); Sodium 134 mmol/L (136-145)
[2020-02-08 07:58] VITALS: TEMP 98
[2020-02-08] MEDS ORDERED: Non-Formulary Item 1 EACH (Nifedipine [Nifedipine Er] 60 MG) PO SCH (09:00)
[2020-02-08] MEDS ORDERED: Levothyroxine Sodium 25 MCG TAB PO SCH (09:00)
[2020-02-08] MEDS ORDERED: Stress 600 With Zinc 1 TAB PO SCH (09:00)
[2020-02-08] MEDS ORDERED: VIT B COMPLEX AND C PO SCH (09:00)
[2020-02-08] MEDS ORDERED: Insulin Glargine 12 UNITS in Pre-Filled Syringe 1 EACH SC SCH (09:00)
[2020-02-08] MEDS ORDERED: Non-Formulary Item 1 EACH (Calcitriol [Calcitriol] 0.5 MCG) PO SCH (09:00)
[2020-02-08] MEDS ORDERED: Calcitriol 0.25 MCG CAP PO SCH (09:00)
[2020-02-08] MEDS ORDERED: Non-Formulary Item 1 EACH (Insulin Degludec [Tresiba Flextouch U-100] 12 UNIT) SQ SCH (09:00)
[2020-02-08] MEDS ORDERED: FOLIC ACID PO SCH (09:00)
[2020-02-08] MEDS ORDERED: NIFEdipine XL 60 MG TAB PO SCH (09:00)
[2020-02-08] MEDS: Nitroglycerin 2% Ointment 1 INCH/1 GM Packet TOP SCH (09:23)
[2020-02-08] MEDS: Carvedilol 6.25 MG TAB PO SCH (09:24)
[2020-02-08] MEDS: Sevelamer Carbonate 800 MG TAB PO SCH (09:24)
[2020-02-08] MEDS: Gabapentin 300 MG CAP PO SCH (09:24)
[2020-02-08] MEDS: Calcium Carbonate 500 MG ChewTAB PO SCH (09:24)
[2020-02-08] MEDS: Famotidine 20 MG TAB PO SCH (09:24)
[2020-02-08] MEDS: Polyethylene Glycol 3350 17 GM Packet PO SCH (09:25)
[2020-02-08] MEDS: Heparin 5,000 UNITS/ML VIAL SC SCH (09:25)
--- NOTE | 2020-02-08 11:44 | DIS ---
DATE OF ADMISSION: 02/06/2020 DATE OF DISCHARGE: 02/08/2020 PRIMARY CARE PROVIDER: [facility]. PSYCHIATRIST: Dr. Mcdaniel. FINAL DIAGNOSES: End-stage renal disease, requiring dialysis; hyperkalemia; acute respiratory failure with hypoxia; diabetes mellitus type 2; hypertension; volume overload. DISCHARGE MEDICINES: Same as his home medicines. 1. Zoloft 25 mg a day. 2. Renvela 1600 mg three times a day. 3. Tums 1000 mg three times a day. 4. Insulin degludec 12 units subcu daily. 5. Levothyroxine 25 mcg a day. 6. Seroquel 200 mg at h.s. 7. Gabapentin 300 mg twice a day. 8. Calcitriol 0.5 mcg a day. 9. Multivitamin. 10. Nifedipine 60 mg a day. 11. Coreg 12.5 mg a day. 12. Protonix 40 mg a day. ALLERGIES: NO KNOWN DRUG ALLERGIES. DIET: Diabetic. CODE STATUS: Full. PENDING AT TIME OF DISCHARGE: Nothing. HOSPITAL COURSE: The patient with history of chronic hemodialysis, admitted through the emergency room with shortness of breath, recently put on hemodialysis. He was initially put on BiPAP, had hyperkalemia of 7.2, was given IV bicarbonate, calcium gluconate. He was seen by Dr. Jeancarlos Mcdaniel, had hemodialysis done last time yesterday. His initial potassium 7.2, creatinine 14.74, BUN 78. This morning, potassium 4.6, creatinine 8.92, BUN 34, blood sugars in the 200 range. After discussion with Dr. Mcdaniel, he is being discharged to follow up with his usual Saturday, , Saturday hemodialysis. Continue home medicines. CONSULTANTS: Dr. Jeancarlos Mcdaniel, Nephrology. PROCEDURES: Emergent hemodialysis. FOLLOWUP: Followup in 3 to 7 days with PCP. Keep his Saturday, , Saturday hemodialysis appointments. PHYSICAL EXAMINATION: CARDIORESPIRATORY: Normal. VITAL SIGNS: Normal. Job ID: [id number]
== END 2020-02-08 10:42 | disposition home or self-care (01) | DRG 640 ==
LOC: ERS 00:40 → IMCU/EMU 02:23
PROVIDERS: ADMIT Internal Medicine; ATTEND Internal Medicine
PROC: 5A1D70Z Performance of Urinary Filtration, Intermittent, Less than 6 Hours Per Day (ICD-10-PCS; principal; 2020-02-06)
PROC: 5A1D70Z Performance of Urinary Filtration, Intermittent, Less than 6 Hours Per Day (ICD-10-PCS; 2020-02-07)
DX: E87.5 Hyperkalemia (principal); J96.01 Acute respiratory failure with hypoxia; N18.6 End stage renal disease; N17.9 Acute kidney failure, unspecified; N25.81 Secondary hyperparathyroidism of renal origin; E78.00 Pure hypercholesterolemia, unspecified; F41.9 Anxiety disorder, unspecified; F32.9 Major depressive disorder, single episode, unspecified; E10.40 Type 1 diabetes mellitus with diabetic neuropathy, unspecified; E10.22 Type 1 diabetes mellitus with diabetic chronic kidney disease; E86.0 Dehydration; E10.65 Type 1 diabetes mellitus with hyperglycemia; D64.9 Anemia, unspecified; F39 Unspecified mood [affective] disorder; R07.89 Other chest pain; E87.70 Fluid overload, unspecified; E83.51 Hypocalcemia; Z79.4 Long term (current) use of insulin; Z79.899 Other long term (current) drug therapy; Z99.2 Dependence on renal dialysis
CPT/HCPCS: 36415; 36416; 71045; 80048; 80053; 83735; 83880; 84484; 85025; 87340; 87635; 90935; 93005; 94660; 96374; 96375; 96376; G0257; J0360; J1644; J1815; Q5105; U0003

== ENCOUNTER 2020-02-15 17:32 | Inpatient (IN) | payer OTHER ==
[~2020-02-15 17:32] MED LIST: Heparin 10,000 UNITS/ 10 ML VIAL ONE
[2020-02-15 18:09] LABS: #Basophils 0.1 thou/uL (0.0-0.2); #Eosinphils 0.7 thou/uL (0.0-0.7); #Lymphocytes 2.2 thou/uL (1.20-3.40); #Monocytes 0.5 thou/uL (0.11-0.59); #Neutrophils 5.2 thou/uL (1.40-6.50); %Basophils 0.9 % (0.0-1.0); %Eosinophils 8.2 % (0.0-10.0); %Lymphocytes 25.5 % (21.0-51.0); %Monocytes 5.4 % (0.0-10.0); %Neutrophils 60.1 % (42.0-75.0); Hemoglobin 8.3 g/dL (14.0-18.0); Mean Corpuscular HGB CONC 33.3 g/dL (32.0-36.0); Mean Corpuscular Hemoglobin 31.3 pg (27.0-31.0); Mean Corpuscular Volume 94.2 fL (78.0-98.0); Mean Platelet Volume 8.4 fL (7.4-10.4); Platelet Count 282 thou/uL (130-400); RBC Distribution Width 16.5 % (11.5-14.5); Red Blood Cell (RBC) Count 2.64 mill/uL (4.70-6.10); White Blood Cell (WBC) Count 8.6 thou/uL (4.8-10.8)
[2020-02-15] MEDS ORDERED: Nitroglycerin 2% Ointment 1 INCH/1 GM Packet ONE (18:23)
[2020-02-15] MEDS ORDERED: Calcium Chloride 1 GM/10 ML Abboject SYRINGE ONE ×2 (18:23→19:50)
[2020-02-15 18:32] LABS: ALT (SGPT) 10 U/L (8-55); AST (SGOT) 21 U/L (5-34); Albumin 3.6 g/dL (3.5-5.0); Alkaline Phosphatase 76 U/L (40-110); Anion Gap 25 mmol/L (10-20); BUN (Urea Nitrogen) 87 mg/dL (8.9-20.6); Bilirubin, Total 0.6 mg/dL (0.2-1.2); Calc. Creatinine Clearance 0 mL/min (70-130); Calcium 8.1 mg/dL (7.8-10.44); Carbon Dioxide 21 mmol/L (22-29); Chloride 97 mmol/L (98-107); Estimated GFR-MDRD 4; Globulin 2.8 g/dL (2.4-3.5); Glucose 90 mg/dL (70-105); Protein, Total 6.4 g/dL (6.0-8.3); Sodium 134 mmol/L (136-145)
[2020-02-15 18:35] LABS: Potassium 8.7 mmol/L (3.5-5.1)
[2020-02-15] MEDS ORDERED: Sodium Bicarbonate 2.5 MEQ/5 ML VIAL ONE (18:42)
[2020-02-15] MEDS ORDERED: Dextrose 50% Abboject 50 ML SYRINGE ONE (18:43)
[2020-02-15] MEDS ORDERED: Insulin Regular 300 UNITS/3 ML VIAL ONE (18:43)
[2020-02-15] MEDS ORDERED: Sodium Bicarb 50 MEQ/50 ML VIAL ONE (18:45)
[2020-02-15] MEDS ORDERED: Sodium Bicarb 50 MEQ/50 ML Abboject 8.4% SYRINGE ONE ×2 (18:48→19:50)
--- NOTE | 2020-02-15 18:57 | RAD ---
PORTABLE CHEST: Date: 02-16-2020 Time: 6:24 p.m. History: Dyspnea. Patient on dialysis. Comparison: 2019 FINDINGS: The heart is enlarged. There is pulmonary edema. No pneumothoraces, lobar consolidation or pleural ef fusions are seen. IMPRESSION: As above. POS: CRISSY
[2020-02-15 19:01] LABS: Magnesium 2.3 mg/dL (1.6-2.6)
[2020-02-15] MEDS ORDERED: HumaLOG 300 UNITS/3 ML VIAL SC PRN (19:27)
[2020-02-15] MEDS ORDERED: Dextrose 50% Abboject 50 ML SYRINGE SLOW IVP PRN (19:27)
[2020-02-15] MEDS ORDERED: Dextrose 5% in Water 1,000 ML IV PRN (19:27)
[2020-02-15] MEDS ORDERED: Furosemide 40 MG/4 ML VIAL ONE (19:49)
[2020-02-15 21:18] LABS: Anion Gap 24 mmol/L (10-20); BUN (Urea Nitrogen) 88 mg/dL (8.9-20.6); Calc. Creatinine Clearance 0 mL/min (70-130); Calcium 9.8 mg/dL (7.8-10.44); Carbon Dioxide 24 mmol/L (22-29); Chloride 99 mmol/L (98-107); Estimated GFR-MDRD 4; Glucose 56 mg/dL (70-105); Potassium 7.9 mmol/L (3.5-5.1); Sodium 139 mmol/L (136-145)
[2020-02-15 22:31] LABS: Anion Gap 22 mmol/L (10-20); BUN (Urea Nitrogen) 84 mg/dL (8.9-20.6); Calc. Creatinine Clearance 0 mL/min (70-130); Carbon Dioxide 25 mmol/L (22-29); Chloride 99 mmol/L (98-107); Estimated GFR-MDRD 4; Sodium 138 mmol/L (136-145)
[2020-02-15 22:38] LABS: Troponin I 0.026 ng/mL (< 0.028)
[2020-02-15 22:43] LABS: Glucose 58 mg/dL (70-105); Potassium 7.8 mmol/L (3.5-5.1)
[2020-02-15 22:46] VITALS: BMI 33.8
--- NOTE | 2020-02-15 22:51 | HP ---
CHIEF COMPLAINT: Weakness and shortness of breath. HISTORY OF PRESENT ILLNESS: Mr. Chaparro is a male with past medical history of end-stage renal disease. The patient has been on dialysis; receives dialysis Saturday, , and Saturday. The patient got his full dialysis on Saturday, but noted he began to have worsening shortness of breath, exertional dyspnea and mild chest pain, unable to move his legs and arms because they feel so heavy according to him. In the emergency room, the patient was in respiratory distress. Lab work, the patient had a potassium of 8.7, BUN is 87, creatinine of 13. Chest x-ray shows pulmonary edema. ED physician consulted with registered nurse, who is arranging to start emergent hemodialysis. Of note, the patient had a new fistula, which he used for his last dialysis on Saturday. In the meantime, the patient received medical treatment for hyperkalemia including calcium gluconate, D50, insulin, and sodium bicarb. Also, the patient received 80 mg of IV Lasix. The patient is being admitted to the hospital for further management. PAST MEDICAL HISTORY: Includes hyperlipidemia, diabetes, hypertension, hypothyroidism, and neuropathy. PAST SURGICAL HISTORY: 1. Adenoidectomy. 2. Right eye surgery. 3. Fistula, right arm. 4. Dialysis catheters. 5. Peritoneal dialysis. PAST PSYCHIATRIC HISTORY: Anxiety and depression. SOCIAL HISTORY: No reported history of alcohol use, drug use or smoking use. FAMILY HISTORY: Reviewed and noncontributory. HOME MEDICATIONS: Please see home medication reconciliation for updated medications. REVIEW OF SYSTEMS: Review of 14 systems negative except what is mentioned in history of present illness. PHYSICAL EXAMINATION: GENERAL: The patient is awake, appears tired, short of breath, and orthopneic. VITAL SIGNS: Blood pressure 180/90, pulse is 62, respiratory rate is 28, oxygen saturation 92%. HEAD AND NECK: Normocephalic, atraumatic. Neck is supple. CHEST: Few bibasilar crackles. HEART: S1, S2. Regular. ABDOMEN: Soft, nontender. NEUROLOGIC: Awake, alert. PSYCH: Unable to assess. EXTREMITIES: Positive for edema. LABORATORY DATA: As mentioned above in the history of present illness. Chest x-ray as mentioned above in the history of present illness. ASSESSMENT: 1. Acute pulmonary edema. 2. Acute hyperkalemia. 3. End-stage renal disease, on hemodialysis. 4. Hypertension. 5. Diabetes mellitus. PLAN: 1. Admit to ICU. [employer] consulted to arrange for urgent hemodialysis. 2. Calcium gluconate, D50, insulin, sodium bicarb were given in the ED. Also was given one dose of Lasix. 3. Reconcile home medications. 4. DVT prophylaxis. 5. Expected length of stay, 2 midnights or more. The case discussed with ED physician and registered nurse. Job ID: [id number]
[2020-02-15] MEDS: Acetaminophen 325 MG TAB PO PRN (23:55)
[2020-02-16 00:37] LABS: Troponin I 0.041 ng/mL (< 0.028)
[2020-02-16 03:29] LABS: #Basophils 0.1 thou/uL (0.0-0.2); #Eosinphils 0.3 thou/uL (0.0-0.7); #Lymphocytes 1.5 thou/uL (1.20-3.40); #Monocytes 0.2 thou/uL (0.11-0.59); #Neutrophils 6.5 thou/uL (1.40-6.50); %Basophils 0.7 % (0.0-1.0); %Eosinophils 3.1 % (0.0-10.0); %Lymphocytes 17.7 % (21.0-51.0); %Monocytes 2.6 % (0.0-10.0); Hemoglobin 8.9 g/dL (14.0-18.0); Mean Corpuscular HGB CONC 32.6 g/dL (32.0-36.0); Mean Corpuscular Hemoglobin 30.8 pg (27.0-31.0); Mean Corpuscular Volume 94.3 fL (78.0-98.0); Mean Platelet Volume 7.7 fL (7.4-10.4); Platelet Count 314 thou/uL (130-400); RBC Distribution Width 16.1 % (11.5-14.5); Red Blood Cell (RBC) Count 2.88 mill/uL (4.70-6.10); White Blood Cell (WBC) Count 8.6 thou/uL (4.8-10.8)
[2020-02-16] MEDS: Acetaminophen 325 MG TAB PO PRN ×2 (03:44→08:20)
[2020-02-16 03:56] LABS: Anion Gap 24 mmol/L (10-20); BUN (Urea Nitrogen) 32 mg/dL (8.9-20.6); Calc. Creatinine Clearance 20 mL/min (70-130); Carbon Dioxide 21 mmol/L (22-29); Chloride 97 mmol/L (98-107); Estimated GFR-MDRD 9; Glucose 83 mg/dL (70-105); Potassium 4.8 mmol/L (3.5-5.1); Sodium 137 mmol/L (136-145)
--- NOTE | 2020-02-16 09:32 | CON ---
DATE OF CONSULTATION: HISTORY OF PRESENT ILLNESS: Maynor Chaparro is a 44-year-old gentleman with multiple medical problems, end-stage renal disease, who presented with worsening electrolyte imbalance. There was some confusion regarding his date for dialysis. He underwent emergency dialysis last night, and this morning, he is in the ICU. He denies any difficulty breathing, coughing, wheezing, orthopnea, or PND. He previously was on peritoneal dialysis that has now been switched over to hemodialysis. PAST MEDICAL HISTORY: Pertinent for depression, hypothyroidism, chronic pain, diabetes, hypertension. PAST SURGICAL HISTORY: Including multiple accesses. SOCIAL HISTORY: Former smoker. No alcohol abuse. HOME MEDICATIONS: Include; 1. Insulin. 2. Folic acid. 3. Flexeril. 4. Renvela. 5. Coreg 12.5. 6. Seroquel 200. 7. Protonix 40. 8. Nifedipine . 9. Synthroid 25. 10. Gabapentin 300. 11. Zoloft 25. ALLERGIES: NONE. REVIEW OF SYSTEMS: Ten-point negative. PHYSICAL EXAMINATION: VITAL SIGNS: Temperature 98, pulse 93, saturations are 96%, blood pressure 130/70. GENERAL: He is in no distress. CHEST: No wheezing. No crackles. CARDIAC: Normal S1 and S2. No gallops. ABDOMEN: No mass. LABORATORY DATA: Creatinine is 6.58. Troponin is normal. White count 8000, hemoglobin and hematocrit are 8 and 27. X-ray shows slight cephalization. IMPRESSION: 1. Renal failure, secondary to missed dialysis. 2. Respiratory failure, resolved. Coronavirus test negative. 3. Diabetes. 4. Hypothyroidism. Pulmonary leavitt, he can be transferred out of the ICU once he finishes his dialysis. Pulmonary/Critical Care will not follow once he leaves the ICU. Job ID: [id number]
[2020-02-16] MEDS ORDERED: Heparin 10,000 UNITS/ 10 ML VIAL ONE (10:40)
--- NOTE | 2020-02-16 11:21 | CON ---
DATE OF CONSULTATION: 02/15/2020 REASON FOR CONSULTATION: Hyperkalemia. HISTORY OF PRESENT ILLNESS: This is a very pleasant 44-year-old gentleman who presented to the hospital after missing dialysis with hyperkalemia. Patient at this time has dyspnea. No chest pain. Potassium was 8.7. Dialysis nurse was called at 6 p.m. PAST MEDICAL HISTORY: Significant for hyperlipidemia, hypertension, diabetes mellitus, adenoidectomy, AV fistula, tunneled dialysis catheter, peritoneal dialysis catheter. SOCIAL HISTORY: No alcohol or drug use. FAMILY HISTORY: Negative for ESRD. ALLERGIES: REVIEWED. MEDICATIONS: Home medication list reviewed. Hospital medication list reviewed. REVIEW OF SYSTEMS: 15-point review of system was performed negative except for positives noted above. HEENT: Eyes intact, no diplopia. Ears: No hearing loss or earache. Nose: No discharge or bleeding. CHEST: No cough or phlegm. ABDOMEN: No nausea or vomiting. GENITOURINARY: No hematuria. No Ordonez catheter. MUSCULOSKELETAL: No low back pain. No joint swelling or pain. NEUROLOGICAL: No syncope. No seizures. SKIN: No complaints of rash or itching. PSYCHIATRIC: No depression. CONSTITUTIONAL: No weight loss or loss of appetite. PHYSICAL EXAMINATION: GENERAL: Patient is awake, alert. VITAL SIGNS: Afebrile, pulse 99, breathing 16, blood pressure 141/79. HEENT: Head normocephalic and atraumatic. Eyes intact, no ulcers. Nose intact, no ulcers. Ears intact, no ulcers. NECK: Supple. No JVD. CHEST: Symmetrical and clear. CARDIOVASCULAR: Shows S1 and S2, no rub, no murmur. GASTROINTESTINAL: Abdomen is soft, bowel sounds positive. EXTREMITIES: Show no edema or ulcers. SKIN: Shows no rash or petechiae. MUSCULOSKELETAL: Shows no joint swelling or stiffness. GENITOURINARY: Shows no Ordonez or CVA tenderness. NEUROLOGIC: Motor intact. Cranial nerves intact. LABORATORY DATA: Potassium 8.7. ASSESSMENT AND PLAN: 1. Stage chronic kidney disease, plan urgent dialysis. 2. Hypertension, stable. 3. Anemia, stable. Medications based on GFR appropriate. Stat dialysis was planned. Job ID: [id number]
[2020-02-16] MEDS ORDERED: Acetaminophen/Codeine 30-300mg Tablet PO PRN (11:38)
--- NOTE | 2020-02-16 11:41 | PDOC.HOSPP ---
- Subjective Encounter Date: 02/16/20 Encounter Time: 10:00 Subjective: Patient seen for follow-up regarding acute pulmonary edema. Reports feeling better. Reports pain at the site of left groin catheter. Denies fevers or chills. - Objective Vital Signs & Weight: Vital Signs (12 hours) Temp Pulse Pulse Ox 02/16/20 08:00 98.1 F 93 L 02/16/20 03:09 94 L 02/16/20 03:00 98.3 F 02/16/20 02:11 94 Weight Weight 216 lb 0.848 oz Most Recent Monitor Data Heart Rate from ECG 89 NIBP 146/78 NIBP BP-Mean 100 Respiration from ECG 15 SpO2 97 I&O: 02/15/20 02/16/20 02/17/20 06:59 06:59 06:59 Intake Total 300 200 Output Total 0 0 Balance 300 200 Result Diagrams: 02/16/20 03:23 02/16/20 03:01 Additional Labs: Accuchecks 02/16/20 02/16/20 02/15/20 06:29 02:21 23:51 POC Glucose 84 98 71 02/15/20 02/15/20 02/15/20 22:25 19:05 17:40 POC Glucose 73 122 H 104 I reviewed patient's labs and MAR EKG Reviewed by me: Yes (Telemetry: NSR) Hospitalist ROS - Review of Systems Constitutional: denies: fever, chills, sweats, weakness, malaise Respiratory: reports: SOB with excertion. denies: cough, dry, shortness of breath, hemoptysis, pleuritic pain, sputum, wheezing Cardiovascular: denies: chest pain, palpitations, orthopnea, paroxysmal noc. dyspnea, edema, light headedness Gastrointestinal: denies: nausea, vomiting, abdominal pain, diarrhea, constipation, melena, hematochezia Musculoskeletal: reports: other (Left groin pain) Skin: denies: rash, lesions, alcides, bruising Neurological: denies: weakness, numbness, incoordination, change in speech, confusion, seizures - Medication Medications: Active Medications Generic Name Dose Route Start Last Admin Trade Name Freq PRN Reason Stop Dose Admin Acetaminophen 650 mg 02/15/20 19:27 02/16/20 08:20 Tylenol PO 650 mg Q4H PRN Administration Headache/Fever/Mild Pain (1-3) - Exam General - other findings: Obese Eye: anicteric sclera ENT: normocephalic atraumatic, moist mucosa Neck: supple, symmetric, no thyromegaly, no lymphadenopathy Heart: RRR, no rubs Respiratory: normal chest expansion, no tachypnea, normal percussion, rales Gastrointestinal: soft, non-tender, non-distended, normal bowel sounds Extremities: no cyanosis Skin: no rashes Musculoskeletal: no muscle wasting Psychiatric: normal affect, normal behavior, A&O x 3 Hosp A/P (1) Acute pulmonary edema Code(s): J81.0 - ACUTE PULMONARY EDEMA Status: Acute (2) End stage renal disease on dialysis Code(s): N18.6 - END STAGE RENAL DISEASE; Z99.2 - DEPENDENCE ON RENAL DIALYSIS Status: Chronic (3) Depression Code(s): F32.9 - MAJOR DEPRESSIVE DISORDER, SINGLE EPISODE, UNSPECIFIED Status : Chronic (4) Diabetes Code(s): E11.9 - TYPE 2 DIABETES MELLITUS WITHOUT COMPLICATIONS Status: Chronic Qualifiers: Diabetes mellitus type: type 1 Diabetes mellitus complication status: with kidney complications Diabetes mellitus complication detail: with chronic kidney disease Chronic kidney disease stage: on chronic dialysis Qualified Code(s): E10.22 - Type 1 diabetes mellitus with diabetic chronic kidney disease ; N18.6 - End stage renal disease; Z99.2 - Dependence on renal dialysis (5) HTN (hypertension) Code(s): I10 - ESSENTIAL (PRIMARY) HYPERTENSION Status: Chronic Qualifiers: Hypertension type: essential hypertension Qualified Code(s): I10 - Essential (primary) hypertension (6) Hyperkalemia Code(s): E87.5 - HYPERKALEMIA Status: Resolved - Plan Patient improved after dialysis. Add Tylenol 3 as needed for pain. Resume home medications, monitor vital signs and titrate antihypertensives as needed. Depression mild, stable. Further dialysis per nephrology service. Patient will likely need removal of dialysis catheter, discussed with nephrology service. Transfer to telemetry floor.
[2020-02-16 11:49] LABS: SARS-CoV-2 MS2 Positive; SARS-CoV-2 N Gene Negative; SARS-CoV-2 S Gene Negative; SARS-CoV-2 by NAA Not Detected (NotDetected); SARS-CoV-2 orf1ab Negative
[2020-02-16] MEDS ORDERED: EPOETIN ALFA-EPBX (ESRD) 10,000 UNIT/ML VIAL SC SCH (12:00)
--- NOTE | 2020-02-16 12:10 | PRG ---
DATE OF SERVICE: 02/16/2020 SUBJECTIVE: A 44-year-old gentleman, being seen for end-stage renal disease. The patient denies nausea, vomiting, or chest pain. OBJECTIVE: General: The patient is awake and alert. Vital Signs: Afebrile, pulse 75, breathing at 16, blood pressure 164/89. HEENT: Head normocephalic and atraumatic. Eyes intact, no ulcers. Nose intact, no ulcers. Ears intact, no ulcers. Neck: Supple. No JVD. Chest: Symmetrical and clear. Cardiovascular: Shows S1 and S2, no rub, no murmur. Gastrointestinal: Abdomen is soft, bowel sounds positive. Extremities: Show no edema or ulcers. Skin: Shows no rash or petechiae. Musculoskeletal: Shows no joint swelling or stiffness. Genitourinary: Shows no Ordonez or CVA tenderness. Neurologic: Motor intact. Cranial nerves intact. LABORATORY DATA: Reviewed. ASSESSMENT AND PLAN: Stage 6 chronic kidney disease, plan dialysis. Hypertension, stable. Hyperkalemia, improved. PD catheter will be removed today. Job ID: [id number]
[2020-02-16] MEDS: Acetaminophen/Codeine 30-300mg Tablet PO PRN ×2 (13:05→21:21)
[2020-02-16] MEDS: Sevelamer Carbonate 800 MG TAB PO SCH ×2 (13:30→16:51)
[2020-02-16] MEDS: Calcium Carbonate 500 MG ChewTAB PO SCH ×2 (13:30→16:51)
--- NOTE | 2020-02-16 20:11 | CON ---
DATE OF CONSULTATION: HISTORY OF PRESENT ILLNESS: Mr. Chaparro is well known to me. He has been on peritoneal dialysis, but has been inadequately dialyzing. His upper right arm fistula cephalic vein had been accessed and that had been used. He presented to the emergency room apparently in need of dialysis access yesterday. He was dyspneic. I have been asked by Dr. Mcdaniel to remove his catheter. In the emergency room, they had placed a femoral vein catheter which the patient states he does not need. They had been accessing his right arm fistula without problem. I had previously taken out his hemodialysis catheter right IJ in the office. On 10/27/2019, I placed a right arm fistula and a hemodialysis catheter as well as a peritoneal dialysis catheter. This hospitalization, I have been asked to remove his PD catheter. We will plan to remove that tomorrow under IV sedation and local anesthesia. He understands the risks and benefits, consents. ALLERGIES: NONE. SOCIAL HISTORY: Tobacco, none. Alcohol, none. MEDICATIONS: 1. Insulin. 2. Folic acid. 3. Epoetin. 4. Renvela. 5. Carvedilol. 6. Calcium carbonate. 7. Calcitriol. 8. Seroquel. 9. Protonix. 10. Nifedipine. 11. Zoloft. PAST SURGICAL HISTORY: Dialysis access as noted above, right arm fistula, hemodialysis catheter, laparoscopic PD catheter. Past history of adenoidectomy, right eye surgery. PAST MEDICAL HISTORY: Hyperlipidemia, diabetes, hypertension, hypothyroidism, and neuropathy. REVIEW OF SYSTEMS: Noncontributory. PHYSICAL EXAMINATION: VITAL SIGNS: Height 5 feet 7 inches, 216 pounds, and 33 BMI. LUNGS: Clear to auscultation. CARDIAC: Regular rate and rhythm. No murmur or gallop. ABDOMEN: Soft and nontender. PD catheter in place. EXTREMITIES: Right arm fistula, good thrill and bruit. Left femoral vein dialysis catheter partially inserted. Extremities without edema. ASSESSMENT AND PLAN: 1. Not adequately dialyzed using peritoneal dialysis catheter. We will remove his peritoneal dialysis catheter tomorrow, IV sedation, local anesthesia. He can go home the same day pending his medical stability. This is usually done as an outpatient. 2. Functioning right upper arm cephalic vein fistula. Job ID: [id number]
[2020-02-16] MEDS: Cyclobenzaprine 10 MG TAB PO SCH (21:09)
[2020-02-16] MEDS: Carvedilol 6.25 MG TAB PO SCH (21:09)
[2020-02-16] MEDS: Gabapentin 300 MG CAP PO SCH (21:12)
[2020-02-17] MEDS: Levothyroxine Sodium 25 MCG TAB PO SCH (05:25)
[2020-02-17] MEDS: Carvedilol 6.25 MG TAB PO SCH ×2 (08:00→21:02)
[2020-02-17] MEDS ORDERED: NIFEdipine XL 60 MG TAB PO SCH (09:00)
[2020-02-17] MEDS ORDERED: Non-Formulary Item 1 EACH (Insulin Degludec [Tresiba Flextouch U-100] 12 UNIT) SQ SCH (09:00)
[2020-02-17] MEDS ORDERED: Fentanyl 100 MCG/2 ML VIAL ONE ×2 (09:27→10:52)
--- NOTE | 2020-02-17 09:39 | PRG ---
DATE OF SERVICE: 02/17/2020 SUBJECTIVE: A 44-year-old male being seen for end-stage renal disease. The patient denied nausea, vomiting, or chest pain. OBJECTIVE: GENERAL: On exam, the patient is awake and alert. VITAL SIGNS: Afebrile, pulse 75, breathing at 16, and blood pressure 165/89. HEENT: Head normocephalic and atraumatic. Eyes intact, no ulcers. Nose intact, no ulcers. Ears intact, no ulcers. NECK: Supple. No JVD. CHEST: Symmetrical and clear. CARDIOVASCULAR: Shows S1 and S2, no rub, no murmur. GASTROINTESTINAL: Abdomen is soft, bowel sounds positive. EXTREMITIES: Show no edema or ulcers. SKIN: Shows no rash or petechiae. MUSCULOSKELETAL: Shows no joint swelling or stiffness. GENITOURINARY: Shows no Ordonez or CVA tenderness. NEUROLOGIC: Motor intact. Cranial nerves intact. LABORATORY DATA: Reviewed. ASSESSMENT AND PLAN: 1. Stage 6 chronic kidney disease, stable. 2. Hypertension, stable. 3. Anemia, stable. Medications based on GFR are appropriate. Plan dialysis today. Job ID: [id number]
[2020-02-17] MEDS ORDERED: Bupivacaine 0.25% HCL 30 ML VIAL ONE (09:50)
[2020-02-17] MEDS ORDERED: Lidocaine 1% w/Epinephrine 1:100K 20 ML VIAL ONE (09:50)
[2020-02-17] MEDS ORDERED: traMADol HCl 50 MG TAB PO PRN (10:11)
[2020-02-17] MEDS ORDERED: Acetaminophen 500 MG TAB PO PRN (10:11)
[2020-02-17] MEDS ORDERED: Promethazine HCl 25 MG/ML VIAL SLOW IVP PRN (10:32)
[2020-02-17] MEDS ORDERED: Promethazine HCl 25 MG/ML VIAL IM PRN (10:32)
[2020-02-17] MEDS ORDERED: Ondansetron HCl/PF 4 MG/2 ML Vial IVP PRN (10:32)
[2020-02-17] MEDS ORDERED: PROPOFOL 200 MG/20 ML VIAL ONE (10:45)
[2020-02-17 11:10] LABS: HBSAg Index 0.15 S/CO (0-0.99); Hep B Surf Ag Non-Reactive S/CO (NonReactive)
--- NOTE | 2020-02-17 14:48 | OP ---
DATE OF PROCEDURE: 02/17/2020 PREOPERATIVE DIAGNOSES: End-stage renal disease; inadequate peritoneal dialysis through his peritoneal dialysis catheter, although it was functioning well; functioning right upper arm cephalic vein fistula. ANESTHESIA: TIVA, local 0.5% Marcaine 30 mL mixed with 1% Xylocaine with epinephrine 20 mL. DESCRIPTION OF PROCEDURE: The patient was taken to the operating room, where under intravenous sedation, left groin temporary hemodialysis catheter removed, pressure held to hemostatic. Abdomen and PD catheter prepared with ChloraPrep and draped in routine fashion. Local anesthetic mixture was infiltrated into the skin and subcutaneous tissue. Catheter and cuff dissected free, removed intact, discarded, and gauze dressing applied. The patient tolerated the procedure well. Job ID: [id number]
--- NOTE | 2020-02-17 15:31 | PRG ---
DATE OF SERVICE: 02/17/2020 SUBJECTIVE: Maynor Chaparro returned to his room after all day being out. OBJECTIVE: VITAL SIGNS: Temperature room air, blood pressure 165/89. Denies any difficulty breathing. Left groin hemodialysis catheter was removed. CHEST: No wheezing. No crackles. CARDIAC: Normal S1, S2. No gallops. ASSESSMENT: History of renal failure, poor compliance, respiratory failure, hypertension and diabetes. PLAN: Pulmonary leavitt, he is stable. We will follow at a distance. Please call if he has any pulmonary issues. Job ID: [id number]
[2020-02-17] MEDS: Sevelamer Carbonate 800 MG TAB PO SCH ×2 (16:30→20:17)
[2020-02-17] MEDS: Calcitriol 0.25 MCG CAP PO SCH (16:30)
[2020-02-17] MEDS: Folic Acid/Vit B Comp W-C PO SCH (16:31)
[2020-02-17] MEDS: Calcium Carbonate 500 MG ChewTAB PO SCH ×2 (16:33→20:17)
--- NOTE | 2020-02-17 17:13 | PDOC.HOSPP ---
- Subjective Encounter Date: 02/17/20 Encounter Time: 17:11 Subjective: Pt seen for followup re: ESRD on dialysis. Feels better today. Had PD and left femoral catheters revoved, had dialysis today. - Objective Vital Signs & Weight: Vital Signs (12 hours) Temp Pulse Resp BP BP Pulse Ox 02/17/20 16:33 80 166/86 H 02/17/20 08:02 97.1 F L 80 16 165/89 H 98 02/17/20 08:00 165/89 H Weight Weight 216 lb 6.4 oz Most Recent Monitor Data Heart Rate from ECG 93 NIBP 145/76 NIBP BP-Mean 99 Respiration from ECG 15 SpO2 92 I&O: 02/16/20 02/17/20 02/18/20 06:59 06:59 06:59 Intake Total 300 940 Output Total 0 0 Balance 300 940 Result Diagrams: 02/16/20 03:23 02/16/20 13:51 Additional Labs: Accuchecks 02/17/20 02/17/20 02/17/20 16:34 11:18 06:04 POC Glucose 90 97 95 02/16/20 02/16/20 20:38 11:12 POC Glucose 191 H 156 H I reviewed labs and MAR EKG Reviewed by me: Yes (Tele: NSR) Hospitalist ROS - Review of Systems Cardiovascular: denies: chest pain, palpitations, orthopnea, paroxysmal noc. dyspnea, edema, light headedness Gastrointestinal: denies: nausea, vomiting, abdominal pain, diarrhea, constipation, melena, hematochezia - Medication Medications: Active Medications Generic Name Dose Route Start Last Admin Trade Name Freq PRN Reason Stop Dose Admin Acetaminophen/Codeine Phosphate 1 tab 02/16/20 11:38 02/17/20 16:55 Tylenol #3 PO 1 tab Q6H PRN Administration Mild Pain (1-3) Acetaminophen/Codeine Phosphate 2 tab 02/16/20 11:38 02/16/20 21:21 Tylenol #3 PO 2 tab Q6H PRN Administration Moderate Pain (4-6) Calcitriol 0.5 mcg 02/17/20 09:00 02/17/20 16:30 Rocaltrol PO 0.5 mcg DAILY APURVA Administration Calcium Carbonate 1,000 mg 02/16/20 12:00 02/17/20 16:33 Tums PO 1,000 mg TID-WM APURVA Administration Carvedilol 12.5 mg 02/16/20 21:00 02/17/20 08:00 Coreg PO 12.5 mg BID APURVA Administration Cyclobenzaprine HCl 10 mg 02/16/20 21:00 02/16/20 21:09 Flexeril PO 10 mg HS APURVA Administration Epoetin Venkatesh-epbx 10,000 unit 02/16/20 12:00 02/16/20 13:33 Retacrit SC 10,000 unit Q7D APURVA Administration Gabapentin 300 mg 02/16/20 21:00 02/16/20 21:12 Neurontin PO 300 mg BID APURVA Administration Levothyroxine Sodium 25 mcg 02/17/20 06:00 02/17/20 05:25 Synthroid PO 25 mcg 0600 APURVA Administration Nifedipine 60 mg 02/17/20 09:00 02/17/20 16:33 Procardia Xl PO 60 mg DAILY APURVA Administration Pantoprazole Sodium 40 mg 02/17/20 09:00 02/17/20 16:33 Protonix PO 40 mg QAM APURVA Administration Quetiapine Fumarate 200 mg 02/16/20 21:00 02/16/20 21:10 Seroquel PO 200 mg HS APURVA Administration Sertraline HCl 25 mg 02/17/20 09:00 02/17/20 16:34 Zoloft PO 25 mg DAILY APURVA Administration Sevelamer Carbonate 1,600 mg 02/16/20 12:00 02/17/20 16:30 Renvela PO 1,600 mg TID-WM APURVA Administration Vitamin B Complex/Vit C/Folic Acid 1 tab 02/17/20 09:00 02/17/20 16:31 Nephro-Archana Tablet PO 1 tab DAILY APURVA Administration - Exam General - other findings: Obese Eye: anicteric sclera ENT: moist mucosa Neck: supple Heart: RRR Respiratory: CTAB Gastrointestinal: soft, non-tender Extremities: no cyanosis Skin: no rashes Psychiatric: normal affect, normal behavior Hosp A/P (1) End stage renal disease on dialysis Code(s): N18.6 - END STAGE RENAL DISEASE; Z99.2 - DEPENDENCE ON RENAL DIALYSIS Status: Chronic (2) Diabetes Code(s): E11.9 - TYPE 2 DIABETES MELLITUS WITHOUT COMPLICATIONS Status: Chronic Qualifiers: Diabetes mellitus type: type 1 Diabetes mellitus complication status: with kidney complications Diabetes mellitus complication detail: with chronic kidney disease Chronic kidney disease stage: on chronic dialysis Qualified Code(s): E10.22 - Type 1 diabetes mellitus with diabetic chronic kidney disease ; N18.6 - End stage renal disease; Z99.2 - Dependence on renal dialysis (3) Depression Code(s): F32.9 - MAJOR DEPRESSIVE DISORDER, SINGLE EPISODE, UNSPECIFIED Status : Chronic (4) HTN (hypertension) Code(s): I10 - ESSENTIAL (PRIMARY) HYPERTENSION Status: Chronic Qualifiers: Hypertension type: essential hypertension Qualified Code(s): I10 - Essential (primary) hypertension (5) Hyperkalemia Code(s): E87.5 - HYPERKALEMIA Status: Resolved (6) Acute pulmonary edema Code(s): J81.0 - ACUTE PULMONARY EDEMA Status: Resolved - Plan Patient improved after dialysis. Continue Tylenol 3 as needed for pain. Increase Procardia XL to 90 mg daily. Depression mild, stable. Blood sugars controlled. Likely home in 24 h
[2020-02-17] MEDS ORDERED: NIFEdipine XL 30 MG TAB PO SCH (17:15)
[2020-02-17] MEDS ORDERED: Acetaminophen/Codeine 30-300mg Tablet PO SCH (19:00)
[2020-02-17] MEDS: Insulin Glargine 12 UNITS in Pre-Filled Syringe 1 EACH SC SCH (20:00)
[2020-02-17] MEDS: Gabapentin 300 MG CAP PO SCH ×2 (20:17→21:02)
[2020-02-17] MEDS: Cyclobenzaprine 10 MG TAB PO SCH (21:03)
[2020-02-18] MEDS: Acetaminophen/Codeine 30-300mg Tablet PO PRN ×2 (03:39→10:06)
[2020-02-18] MEDS: Levothyroxine Sodium 25 MCG TAB PO SCH (05:29)
[2020-02-18] MEDS ORDERED: NIFEdipine XL 90 MG TAB PO SCH (09:00)
[2020-02-18] MEDS: Calcium Carbonate 500 MG ChewTAB PO SCH ×2 (10:09→15:06)
[2020-02-18] MEDS: Gabapentin 300 MG CAP PO SCH (10:12)
[2020-02-18] MEDS: Sevelamer Carbonate 800 MG TAB PO SCH ×2 (10:12→15:06)
[2020-02-18] MEDS: Carvedilol 6.25 MG TAB PO SCH (10:12)
[2020-02-18] MEDS: Insulin Glargine 12 UNITS in Pre-Filled Syringe 1 EACH SC SCH (10:14)
[2020-02-18] MEDS ORDERED: traMADol HCl 50 MG TAB PO PRN (11:00)
--- NOTE | 2020-02-18 14:17 | PRG ---
DATE OF SERVICE: 02/18/2020 SUBJECTIVE: A 44-year-old gentleman being seen for end-stage renal disease. The patient denied nausea, vomiting, or chest pain. PHYSICAL EXAMINATION: General: The patient is awake and alert. Vital Signs: Afebrile, pulse 75, breathing 16, blood pressure was 119/62. HEENT: Head normocephalic and atraumatic. Eyes intact, no ulcers. Nose intact, no ulcers. Ears intact, no ulcers. Neck: Supple. No JVD. Chest: Symmetrical and clear. Cardiovascular: Shows S1 and S2, no rub, no murmur. Gastrointestinal: Abdomen is soft, bowel sounds positive. Extremities: Show no edema or ulcers. Skin: Shows no rash or petechiae. Musculoskeletal: Shows no joint swelling or stiffness. Genitourinary: Shows no Ordonez or CVA tenderness. Neurologic: Motor intact. Cranial nerves intact. LABORATORY DATA: Labs show hemoglobin of 8.9. ASSESSMENT AND PLAN: 1. Stage 6 chronic kidney disease. Plan dialysis. 2. Hypertension, stable. 3. Anemia, stable. 4. Medication based on GFR appropriate. Job ID: [id number]
[2020-02-18] MEDS: Folic Acid/Vit B Comp W-C PO SCH (15:05)
[2020-02-18] MEDS: Calcitriol 0.25 MCG CAP PO SCH (15:05)
[2020-02-18 15:11] VITALS: BP 146/82; TEMP 98.5
--- NOTE | 2020-02-19 04:10 | DIS ---
DATE OF ADMISSION: 02/15/2020 DATE OF DISCHARGE: 02/18/2020 PRIMARY CARE PROVIDER: Zoya Stephenson NP DISCHARGE DIAGNOSES: 1. Severe hyperkalemia. 2. Volume overload. 3. Metabolic acidosis. 4. Uremia. 5. End-stage renal disease, on hemodialysis. 6. COVID-19 test negative. CONDITION OF PATIENT ON THE DAY OF DISCHARGE: Stable. I assessed Mr. Chaparro on the day of discharge. He denies any chest pain or shortness of breath. Vital signs are stable. S1 and S2 are heard, regular. Lungs are clear to auscultation bilaterally. DISCHARGE MEDICATIONS: Procardia dose was increased to 90 mg daily. Otherwise, no change was made to his pre-admission home medications. CONSULTATIONS DURING THIS HOSPITALIZATION: Nephrology, Dr. Mcdaniel and General Surgery, Dr. Rivera. HOSPITAL COURSE: Mr. Chaparro is a pleasant 44-year-old gentleman, who was admitted on February 15, 2020 to the Critical Care Unit for severe hyperkalemia and volume overload. He was seen by Nephrology Service. He underwent emergent hemodialysis, with improvement in his biochemical parameters. He was subsequently transferred to telemetry floor. He was seen by General Surgery Service. On February 17, 2020, he was taken to the operating room and underwent removal of left groin temporary hemodialysis catheter as well as peritoneal dialysis catheter. He has a functioning right upper arm cephalic vein fistula, which was used for dialysis. His blood pressures were elevated during this hospitalization and therefore, Procardia dose was increased. He is undergoing dialysis prior to discharge on February 18, 2020. 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 ACTIVITY: No restrictions. DIET: Diabetic, heart healthy and renal. DISCHARGE DESTINATION: Home. TIME SPENT: Total amount of time spent coordinating this discharge: 32 minutes. Job ID: [id number]
--- NOTE | 2020-02-20 16:42 | EKG ---
Test Reason : Blood Pressure : / mmHG Vent. Rate : 061 BPM Atrial Rate : 061 BPM P-R Int : 180 ms QRS Dur : 136 ms QT Int : 428 ms P-R-T Axes : 064 -37 096 degrees QTc Int : 430 ms Normal sinus rhythm Left axis deviation T wave abnormality, consider lateral ischemia Abnormal ECG Confirmed by ROSHAN GANT ([id number]), manuscript editor TSEFAN WALTON ([id number]) on 02/20/2020 4:42:15 PM Referred By: Confirmed By:ROSHAN GANT
== END 2020-02-18 15:00 | disposition home or self-care (01) | DRG 189 ==
LOC: ERS 17:32 → ERHOLD 19:32 → CCU 21:37 → 2NO 02-16 12:36
PROVIDERS: ADMIT Internal Medicine; ATTEND Internal Medicine
PROC: 0WPGX3Z Removal of Infusion Device from Peritoneal Cavity, External Approach (ICD-10-PCS; principal; 2020-02-17)
PROC: 3E1M39Z Irrigation of Peritoneal Cavity using Dialysate, Percutaneous Approach (ICD-10-PCS; 2020-02-17)
DX: J81.0 Acute pulmonary edema (principal); N18.6 End stage renal disease; J96.90 Respiratory failure, unspecified, unspecified whether with hypoxia or hypercapnia; I12.0 Hypertensive chronic kidney disease with stage 5 chronic kidney disease or end stage renal disease; F32.0 Major depressive disorder, single episode, mild; E87.2 Acidosis; E87.5 Hyperkalemia; Z20.828 Contact with and (suspected) exposure to other viral communicable diseases; E87.70 Fluid overload, unspecified; E78.5 Hyperlipidemia, unspecified; E78.00 Pure hypercholesterolemia, unspecified; E03.9 Hypothyroidism, unspecified; F41.9 Anxiety disorder, unspecified; D63.1 Anemia in chronic kidney disease; E66.9 Obesity, unspecified; E10.22 Type 1 diabetes mellitus with diabetic chronic kidney disease; E10.41 Type 1 diabetes mellitus with diabetic mononeuropathy; Z79.4 Long term (current) use of insulin; Z88.8 Allergy status to other drugs, medicaments and biological substances; Z79.899 Other long term (current) drug therapy; Z99.2 Dependence on renal dialysis
CPT/HCPCS: 36415; 36416; 71045; 80048; 80053; 83690; 83735; 83880; 84443; 84484; 85025; 87340; 87635; 90935; 93005; 94760; G0257; J0690; J1642; J1644; J1815; J1940; J2704; J3010; Q5105; S0020; U0003

== ENCOUNTER 2020-08-12 13:20 | Emergency (ER) | payer MEDICARE, OTHER ==
[2020-08-12 14:55] LABS: #Basophils 0.1 thou/uL (0.0-0.2); #Eosinphils 0.3 thou/uL (0.0-0.7); #Lymphocytes 1.7 thou/uL (1.20-3.40); #Monocytes 0.6 thou/uL (0.11-0.59); #Neutrophils 7.9 thou/uL (1.40-6.50); %Basophils 0.6 % (0.0-1.0); %Eosinophils 2.5 % (0.0-10.0); %Lymphocytes 16.2 % (21.0-51.0); %Monocytes 5.4 % (0.0-10.0); %Neutrophils 75.4 % (42.0-75.0); Hemoglobin 7.8 g/dL (14.0-18.0); Mean Corpuscular HGB CONC 36.1 g/dL (32.0-36.0); Mean Corpuscular Hemoglobin 35.1 pg (27.0-31.0); Mean Corpuscular Volume 97.4 fL (78.0-98.0); Mean Platelet Volume 7.2 fL (7.4-10.4); Platelet Count 282 thou/uL (130-400); RBC Distribution Width 11.7 % (11.5-14.5); Red Blood Cell (RBC) Count 2.23 mill/uL (4.70-6.10); White Blood Cell (WBC) Count 10.4 thou/uL (4.8-10.8)
[2020-08-12 15:23] LABS: Albumin 4.5 g/dL (3.5-5.0)
[2020-08-12 15:24] LABS: Potassium 4.9 mmol/L (3.5-5.1); Sodium 137 mmol/L (136-145)
[2020-08-12 15:25] LABS: Calcium 8.3 mg/dL (7.8-10.44); Chloride 91 mmol/L (98-107)
[2020-08-12 15:26] LABS: Globulin 2.5 g/dL (2.4-3.5); Glucose 166 mg/dL (70-105)
[2020-08-12 15:27] LABS: Anion Gap 26 mmol/L (10-20); Carbon Dioxide 25 mmol/L (22-29)
[2020-08-12 15:28] LABS: Bilirubin, Total 0.7 mg/dL (0.2-1.2)
[2020-08-12 15:29] LABS: Alkaline Phosphatase 51 U/L (40-110); Calc. Creatinine Clearance 0 mL/min (70-130)
[2020-08-12 15:30] LABS: BUN (Urea Nitrogen) 60 mg/dL (8.9-20.6)
[2020-08-12 15:31] LABS: AST (SGOT) 17 U/L (5-34)
[2020-08-12 15:32] LABS: ALT (SGPT) 9 U/L (8-55)
[2020-08-12] MEDS ORDERED: EPOETIN ALFA-EPBX (ESRD) 10,000 UNIT/ML VIAL IVP SCH (16:15)
== END 2020-08-12 22:03 | disposition home or self-care (01) ==
LOC: ERS 13:20
DX: E10.22 Type 1 diabetes mellitus with diabetic chronic kidney disease (principal); I12.9 Hypertensive chronic kidney disease with stage 1 through stage 4 chronic kidney disease, or unspecified chronic kidney disease; N18.9 Chronic kidney disease, unspecified; D63.1 Anemia in chronic kidney disease; E78.5 Hyperlipidemia, unspecified; E78.00 Pure hypercholesterolemia, unspecified; E10.10 Type 1 diabetes mellitus with ketoacidosis without coma; Z99.2 Dependence on renal dialysis; Z79.899 Other long term (current) drug therapy
CPT/HCPCS: 36415; 71045; 80053; 85025; 86850; 86900; 86901; 90935; 93005; G0257

== ENCOUNTER 2020-11-20 | Emergency (ER) | payer MEDICARE, OTHER ==
[2020-11-20] MEDS ORDERED: Acetaminophen 500 MG TAB ONE (00:49)
[2020-11-20 01:23] LABS: #Eosinphils 0.4 thou/uL (0.0-0.7); #Lymphocytes 0.8 thou/uL (1.20-3.40); #Monocytes 0.8 thou/uL (0.11-0.59); #Neutrophils 6.3 thou/uL (1.40-6.50); %Basophils 0.2 % (0.0-1.0); %Eosinophils 4.7 % (0.0-10.0); %Lymphocytes 10.1 % (21.0-51.0); %Monocytes 9.1 % (0.0-10.0); %Neutrophils 75.9 % (42.0-75.0); Hemoglobin 10.3 g/dL (14.0-18.0); Mean Corpuscular HGB CONC 34.7 g/dL (32.0-36.0); Mean Corpuscular Volume 97.9 fL (78.0-98.0); Platelet Count 175 thou/uL (130-400); RBC Distribution Width 13.7 % (11.5-14.5); Red Blood Cell (RBC) Count 3.04 mill/uL (4.70-6.10); White Blood Cell (WBC) Count 8.2 thou/uL (4.8-10.8)
[2020-11-20 01:44] LABS: Anion Gap 20 mmol/L (10-20); BUN (Urea Nitrogen) 36 mg/dL (8.9-20.6); Calc. Creatinine Clearance 0 mL/min (70-130); Carbon Dioxide 22 mmol/L (22-29); Chloride 101 mmol/L (98-107); Potassium 4.2 mmol/L (3.5-5.1); Sodium 139 mmol/L (136-145)
[2020-11-20 01:45] LABS: ALT (SGPT) 17 U/L (8-55); AST (SGOT) 27 U/L (5-34); Albumin 4.5 g/dL (3.5-5.0); Alkaline Phosphatase 85 U/L (40-110); Bilirubin, Total 0.8 mg/dL (0.2-1.2); Calcium 8.6 mg/dL (7.8-10.44); Globulin 3.2 g/dL (2.4-3.5); Glucose 164 mg/dL (70-105); Protein, Total 7.7 g/dL (6.0-8.3)
[2020-11-20 02:27] LABS: SARS-CoV-2 NAA Rapid Test DETECTED (NotDetected)
[2020-11-20] MEDS ORDERED: Ketorolac Tromethamine 30 MG/ML VIAL ONE (02:46)
== END 2020-11-20 03:05 | disposition home or self-care (01) ==
LOC: ERS
DX: U07.1 COVID-19 (principal); E78.5 Hyperlipidemia, unspecified; E78.00 Pure hypercholesterolemia, unspecified; I10 Essential (primary) hypertension; E03.9 Hypothyroidism, unspecified; E10.40 Type 1 diabetes mellitus with diabetic neuropathy, unspecified; E10.11 Type 1 diabetes mellitus with ketoacidosis with coma; Z79.899 Other long term (current) drug therapy; Z79.4 Long term (current) use of insulin
CPT/HCPCS: 0240U; 71045; 80053; 83605; 85025; 87040; 36415; 96374; J1885

== ENCOUNTER 2020-11-22 13:18 | Emergency (ER) | payer MEDICARE, OTHER ==
[2020-11-22 15:41] LABS: #Eosinphils 0.4 thou/uL (0.0-0.7); #Lymphocytes 1.4 thou/uL (1.20-3.40); #Monocytes 0.4 thou/uL (0.11-0.59); #Neutrophils 2.6 thou/uL (1.40-6.50); %Basophils 0.5 % (0.0-1.0); %Eosinophils 9.1 % (0.0-10.0); %Lymphocytes 28.5 % (21.0-51.0); %Monocytes 7.5 % (0.0-10.0); %Neutrophils 54.4 % (42.0-75.0); Hemoglobin 10.9 g/dL (14.0-18.0); Mean Corpuscular HGB CONC 33.6 g/dL (32.0-36.0); Mean Corpuscular Hemoglobin 32.5 pg (27.0-31.0); Mean Corpuscular Volume 96.9 fL (78.0-98.0); Mean Platelet Volume 8.8 fL (7.4-10.4); Platelet Count 150 thou/uL (130-400); RBC Distribution Width 13.4 % (11.5-14.5); Red Blood Cell (RBC) Count 3.35 mill/uL (4.70-6.10); White Blood Cell (WBC) Count 4.8 thou/uL (4.8-10.8)
[2020-11-22 16:14] LABS: ALT (SGPT) 17 U/L (8-55); AST (SGOT) 23 U/L (5-34); Albumin 4.2 g/dL (3.5-5.0); Alkaline Phosphatase 82 U/L (40-110); Anion Gap 27 mmol/L (10-20); BUN (Urea Nitrogen) 71 mg/dL (8.9-20.6); Bilirubin, Total 0.9 mg/dL (0.2-1.2); Calc. Creatinine Clearance 0 mL/min (70-130); Calcium 7.9 mg/dL (7.8-10.44); Carbon Dioxide 14 mmol/L (22-29); Chloride 100 mmol/L (98-107); Globulin 2.9 g/dL (2.4-3.5); Glucose 189 mg/dL (70-105); Potassium 5.2 mmol/L (3.5-5.1); Protein, Total 7.1 g/dL (6.0-8.3); Sodium 136 mmol/L (136-145)
[2020-11-23] MEDS ORDERED: Acetaminophen 500 MG TAB ONE (01:00)
[2020-11-23 01:11] LABS: HBSAg Index 0.19 S/CO (0-0.99); Hep B Surf Ag Non-Reactive S/CO (NonReactive)
[2020-11-23] MEDS ORDERED: NIFEdipine XL 90 MG TAB PO SCH (01:45)
[2020-11-23] MEDS ORDERED: Carvedilol 6.25 MG TAB PO SCH (01:45)
== END 2020-11-23 01:42 | disposition home or self-care (01) ==
LOC: ERS 13:18
DX: I12.0 Hypertensive chronic kidney disease with stage 5 chronic kidney disease or end stage renal disease (principal); E10.22 Type 1 diabetes mellitus with diabetic chronic kidney disease; N18.6 End stage renal disease; E87.5 Hyperkalemia; E10.40 Type 1 diabetes mellitus with diabetic neuropathy, unspecified; E10.11 Type 1 diabetes mellitus with ketoacidosis with coma; E03.9 Hypothyroidism, unspecified; Z99.2 Dependence on renal dialysis; Z79.899 Other long term (current) drug therapy
CPT/HCPCS: 36415; 71045; 80053; 84484; 85025; 87340; 90935; 93005; G0257

== ENCOUNTER 2020-11-27 17:48 | Emergency (ER) | payer MEDICARE, OTHER, MEDICAID ==
[2020-11-27 18:36] LABS: #Eosinphils 0.4 thou/uL (0.0-0.7); #Lymphocytes 1.7 thou/uL (1.20-3.40); #Monocytes 0.6 thou/uL (0.11-0.59); %Basophils 0.3 % (0.0-1.0); %Eosinophils 6.5 % (0.0-10.0); %Monocytes 11.2 % (0.0-10.0); Hemoglobin 10.1 g/dL (14.0-18.0); Mean Corpuscular HGB CONC 34.7 g/dL (32.0-36.0); Mean Corpuscular Hemoglobin 33.1 pg (27.0-31.0); Mean Corpuscular Volume 95.5 fL (78.0-98.0); Mean Platelet Volume 9.6 fL (7.4-10.4); Platelet Count 121 thou/uL (130-400); RBC Distribution Width 13.2 % (11.5-14.5); Red Blood Cell (RBC) Count 3.04 mill/uL (4.70-6.10); White Blood Cell (WBC) Count 5.7 thou/uL (4.8-10.8)
[2020-11-27 19:03] LABS: ALT (SGPT) 12 U/L (8-55); AST (SGOT) 20 U/L (5-34); Albumin 4.1 g/dL (3.5-5.0); Alkaline Phosphatase 79 U/L (40-110); BUN (Urea Nitrogen) 56 mg/dL (8.9-20.6); Bilirubin, Total 0.8 mg/dL (0.2-1.2); Calc. Creatinine Clearance 0 mL/min (70-130); Calcium 6.7 mg/dL (7.8-10.44); Carbon Dioxide 20 mmol/L (22-29); Chloride 99 mmol/L (98-107); Globulin 2.7 g/dL (2.4-3.5); Glucose 149 mg/dL (70-105); Potassium 4.3 mmol/L (3.5-5.1); Protein, Total 6.8 g/dL (6.0-8.3); Sodium 139 mmol/L (136-145)
[2020-11-27 19:34] LABS: Anion Gap 24 mmol/L (10-20)
== END 2020-11-28 01:20 | disposition home or self-care (01) ==
LOC: ERS 17:48
DX: I12.0 Hypertensive chronic kidney disease with stage 5 chronic kidney disease or end stage renal disease (principal); N18.6 End stage renal disease; E10.22 Type 1 diabetes mellitus with diabetic chronic kidney disease; E03.9 Hypothyroidism, unspecified; E78.5 Hyperlipidemia, unspecified; Z79.899 Other long term (current) drug therapy
CPT/HCPCS: 36415; 71045; 80053; 83880; 84484; 85025; 90935; 93005; G0257

== ENCOUNTER 2020-12-11 03:43 | Emergency (ER) | payer MEDICARE ==
[2020-12-11 04:12] LABS: #Basophils 0.1 thou/uL (0.0-0.2); #Eosinphils 0.5 thou/uL (0.0-0.7); #Lymphocytes 1.9 thou/uL (1.20-3.40); #Monocytes 0.6 thou/uL (0.11-0.59); #Neutrophils 6.9 thou/uL (1.40-6.50); %Basophils 0.6 % (0.0-1.0); %Eosinophils 4.6 % (0.0-10.0); %Monocytes 5.8 % (0.0-10.0); Hemoglobin 9.6 g/dL (14.0-18.0); Mean Corpuscular Hemoglobin 33.1 pg (27.0-31.0); Mean Corpuscular Volume 94.6 fL (78.0-98.0); Mean Platelet Volume 8.3 fL (7.4-10.4); Platelet Count 174 thou/uL (130-400); RBC Distribution Width 14.5 % (11.5-14.5); White Blood Cell (WBC) Count 9.9 thou/uL (4.8-10.8)
[2020-12-11 04:32] LABS: Chloride 96 mmol/L (98-107); Potassium 3.9 mmol/L (3.5-5.1); Sodium 136 mmol/L (136-145)
[2020-12-11] MEDS ORDERED: hydrALAZINE 20 MG/ML VIAL ONE (04:33)
[2020-12-11 04:38] LABS: Albumin 4.3 g/dL (3.5-5.0)
[2020-12-11 04:39] LABS: Calcium 7.7 mg/dL (7.8-10.44)
[2020-12-11 04:40] LABS: Globulin 2.5 g/dL (2.4-3.5); Glucose 244 mg/dL (70-105); Protein, Total 6.8 g/dL (6.0-8.3)
[2020-12-11 04:41] LABS: Carbon Dioxide 22 mmol/L (22-29)
[2020-12-11 04:42] LABS: Bilirubin, Total 0.8 mg/dL (0.2-1.2)
[2020-12-11 04:43] LABS: Alkaline Phosphatase 104 U/L (40-110); Calc. Creatinine Clearance 0 mL/min (70-130)
[2020-12-11 04:44] LABS: BUN (Urea Nitrogen) 40 mg/dL (8.9-20.6)
[2020-12-11 04:45] LABS: AST (SGOT) 22 U/L (5-34)
[2020-12-11 04:46] LABS: ALT (SGPT) 12 U/L (8-55)
[2020-12-11 05:18] LABS: Anion Gap 22 mmol/L (10-20)
== END 2020-12-11 12:05 | disposition home or self-care (01) ==
LOC: ERS 03:43
DX: I12.0 Hypertensive chronic kidney disease with stage 5 chronic kidney disease or end stage renal disease (principal); N18.6 End stage renal disease; E10.22 Type 1 diabetes mellitus with diabetic chronic kidney disease; Z99.2 Dependence on renal dialysis; R09.02 Hypoxemia; E87.70 Fluid overload, unspecified; R06.00 Dyspnea, unspecified; E78.5 Hyperlipidemia, unspecified; E78.00 Pure hypercholesterolemia, unspecified; E10.40 Type 1 diabetes mellitus with diabetic neuropathy, unspecified; E10.11 Type 1 diabetes mellitus with ketoacidosis with coma; E03.9 Hypothyroidism, unspecified; Z79.899 Other long term (current) drug therapy
CPT/HCPCS: 36415; 71045; 80053; 84484; 85025; 90935; 93005; 96374; G0257; J0360